=== PATIENT | female | born 1990 | race Caucasian/White ===

== ENCOUNTER 2020-05-17 07:29 | Inpatient (IN) | payer MEDICAID, SELFPAY ==
[2020-05-17] VITALS (122 sets, daily range): BP systolic 87–154; BP diastolic 46–131; PULSE 76–120; RESP 9–39; TEMP 36.6; O2SAT 88–100
--- NOTE | 2020-05-17 07:15 | RT.EKG_ITS ---
APPROVED REPORT Exam: Resting ECG Patient Location: E HR:105 bpm ECG Measurements Heart Rate 105 AXIS MT 155 P 43 QRSd 84 QRS 24 QT 371 T 33 QTc 489 Conclusion EKG 7: 50 Rate 105, sinus tachycardia, intervals normal, no significant ST elevation or depression, no evidence of STEMI
--- NOTE | 2020-05-17 07:43 | W.ED.GENAD ---
Discharge Plan Disposition Patient Disposition: [facility] INPATIENT Condition: Stable Discharge Details Clinical Impression: Accidental heroin overdose, Crack cocaine use, Elevated troponin, Chest wall pain Primary Care Provider: Denisha,Local ED Provider: Giselle Godfrey Home Meds and New Rx's Prescriptions: No Action acetaminophen [Tylenol] 325 MG tablet 650 mg PO Q4H PRN PRNQty: 30 RF: 0 dextroamphetamine-amphetamine [Adderall] 10 mg Tablet 10 mg PO DAILY RF: 0 trazodone 150 mg Tablet 150 mg PO QHS RF: 0 gabapentin 300 mg Tablet 600 mg PO QHS RF: 0 Medical Decision Making <Maco Mancuso, - Last Filed: 05/17/20 07:53> 30-year-old female with a past medical history of previous illicit drug use, presents today for evaluation of overdose. Patient has been clean for the last 2-1/2 years after being in snf for 2 years. She got out over 6 months ago. She has been clean since tonight. Tonight she overdosed accidentally, stating that she first smoked crack cocaine, followed by snorting of heroin. She was found by EMS in agonal respirations, with a notably diminished mental status. Intranasal and then subsequent intramuscular Narcan was given. After a prolonged episode and multiple sternal rubs the patient eventually began breathing normally again and eventually had complete return to her mental status and was brought into the ER for further evaluation. Currently the patient complains of pain in her chest on the left-hand side with a sternal rubs were performed per EMS, she also complains of pain on the tip of her tongue. No other complaints at this time. She denies any homicidal or suicidal ideations. She denies any other complaints. No other modifying factors. She is notably remorseful of her decision to use drugs again. Physical exam demonstrates notable reproducible tenderness over the left parasternal border. No evidence of bruising or dislocation otherwise. No evidence of tongue biting or laceration to the tongue. No other abnormalities on exam. With the patient's cocaine use in conjunction with a heroin use and her current chest pain we will get basic lab screening EKG and troponin. However I do feel her symptoms are most likely secondary to the notable and multiple sternal rubs that she got while trying to be aroused from her overdose. Patient will be signed out to my colleague Dr. Giselle Godfrey for follow-up on labs and imaging. We will procure the help of a manager disaster recovery to talk with the patient, she has agreed to this. EKG 7: 50 Rate 105, sinus tachycardia, intervals normal, no significant ST elevation or depression, no evidence of STEMI. <Giselle Godfrey, - Last Filed: 05/17/20 14:50> 0800 --please see Dr. Mancuso's note for initial presentation, exam and plan. Case endorsed to follow-up on labs and imaging and final disposition. Labs resulted and noted a significantly elevated white blood cell count at 25. Hemoglobin at baseline at 10. Troponin 0.10. Her EKG was unremarkable for any acute ST T wave ischemic changes. Patient continuing to complain of left-sided chest pain. Per Dr. Mancuso's evaluation, pain appeared musculoskeletal. Upon my assessment, patient has significant tenderness to palpation of her left anterior as well as substernal chest, likely consistent with multiple sternal rubs after overdose this morning. Suspect elevated yet indeterminate troponin likely due to this. As patient did smoke crack cocaine, will discuss with [facility] cardiology for consideration of vasospasm however this seems less likely. Patient with dizziness, nausea. Heart rate 100. Will give a liter IV fluids, Compazine, IV Tylenol and reassess. 0920 -- d/w [facility] cardiology -recommends observation for serial troponins and EKGs and echocardiogram. Agree that likely could be musculoskeletal but with cocaine use would recommend admission for observation. Does not see indication for tertiary care at this time unless condition changes. 1000 -- patient significantly drowsy after Compazine. Vitals remained within normal limits. Normal respiratory rate. 1200 -- repeat troponin uptrending, now 0.21. Repeat EKG unchanged. Pt still c/o chest pain. She was just screaming on the phone with someone. Will give a dose of ativan IV. Case discussed again with [facility] cardiology who still does not see indication for transfer for tertiary care. Does still recommend admission for observation, serial troponins and EKGs and echocardiogram. Case discussed with hospitalist who does not feel comfortable with patient staying here as echocardiogram not available this weekend. Patient requested [place] if possible. 1400 --discussed with [facility] cardiology --no indication for emergent transfer at this time. Would not be able to obtain echocardiogram until Tuesday either. 1440 --discussed with Dr. Rod who accepts patient for admission if third troponin not significantly uptrending. Troponin 0.26. Repeat EKG unchanged. Medical Records Medical records reviewed: Yes I reviewed the patient's medical records. Imaging Data Radiologic Study: Radiologist's impression: XR Chest, 1 View Exam date and time: 05/17/2020 9:26 AM Age: 30 years old Clinical indication: Chest pain; Type not specified TECHNIQUE: Imaging protocol: XR of the chest Views: 1 view. COMPARISON: No relevant prior studies available. FINDINGS: Lungs: Unremarkable. No consolidation. Pleural space: Unremarkable. No pleural effusion. No pneumothorax. Heart/Mediastinum: Unremarkable. No cardiomegaly. Bones/joints: Unremarkable. IMPRESSION: No acute findings. CT Angiography Chest With Contrast Exam date and time: 05/17/2020 12:22 PM Age: 30 years old Clinical indication: Patient HX: S/P heroin od, chest pain, ; additional info: Sub optimal iv, injection rate 3.5 TECHNIQUE: Imaging protocol: Computed tomographic angiography of the chest with intravenous contrast. 3D rendering (Not supervised by radiologist): MIP and/or 3D reconstructed images were created by the technologist. Contrast material: OMNIPAQUE 350; Contrast volume: 100 ml; Contrast route: IV; COMPARISON: CR XR PORTABLE CHEST AP 05/17/2020 9:18 AM FINDINGS: Pulmonary arteries: No evidence of pulmonary embolus to the segmental level. Aorta: No aneurysm of the aorta. No dissection of the aorta. Lungs: Minimal bibasilar atelectasis Pleural space: Unremarkable. No pneumothorax. No pleural effusion. Heart: Unremarkable. No cardiomegaly. No pericardial effusion. Lymph nodes: Preaortic node 21 x 8 mm Large node in the left axilla 2.4 by 1.3 cm. Node in the right axilla 2.4 x 0.9 cm Gallbladder and bile ducts: Cholecystectomy Bones/joints: Unremarkable. No acute fracture. Soft tissues: Unremarkable. IMPRESSION: 1. No evidence of pulmonary embolus to the segmental level. 2. No aneurysm of the aorta. 3. No dissection of the aorta. Lab Data Lab results reviewed: Yes I reviewed the patient's lab results. ECG Data Attestation: I personally reviewed and interpreted this ECG (s) as follows: Interpretation: #1 -- Rate of 105, sinus, no acute ST elevation or depression. WI 155. QRS 84. QTc 489. #2 -- Rate of 92, sinus, no acute ST elevation or depression. T wave inversion in aVL. WI 154. QRS 83. QTc 488. #3 -- Rate of 84, sinus, no acute ST elevation or depression. WI 159. QRS 85. QTc 470. HPI <Maco Mancuso DO - Last Filed: 05/17/20 07:53> General Date/Time Provider Initiated Documentation: 05/17/20 07:39. HPI Narrative: 30-year-old female with a past medical history of previous illicit drug use, presents today for evaluation of overdose. Patient has been clean for the last 2-1/2 years after being in snf for 2 years. She got out over 6 months ago. She has been clean since tonight. Tonight she overdosed accidentally, stating that she first smoked crack cocaine, followed by snorting of heroin. She was found by EMS in agonal respirations, with a notably diminished mental status. Intranasal and then subsequent intramuscular Narcan was given. After a prolonged episode and multiple sternal rubs the patient eventually began breathing normally again and eventually had complete return to her mental status and was brought into the ER for further evaluation. Currently the patient complains of pain in her chest on the left-hand side with a sternal rubs were performed per EMS, she also complains of pain on the tip of her tongue. No other complaints at this time. She denies any homicidal or suicidal ideations. She denies any other complaints. No other modifying factors. She is notably remorseful of her decision to use drugs again. Related Data Home Medications Medication Instructions Recorded Confirmed acetaminophen [Tylenol] 650 mg PO Q4H PRN PRN #30 tab 11/17/17 05/17/20 dextroamphetamine-amphetamine 10 mg PO DAILY 05/17/20 05/17/20 [Adderall] gabapentin 600 mg PO QHS 05/17/20 05/17/20 trazodone 150 mg PO QHS 05/17/20 05/17/20 Previous Rx's Medication Instructions Recorded acetaminophen [Tylenol] 650 mg PO Q4H PRN PRN #30 tab 11/17/17 Allergies Allergy/AdvReac Type Severity Reaction Status Date / Time sulfamethoxazole Allergy Intermediate Hives Verified 05/17/20 08:17 [From Bactrim] Review of Systems <Maco Mancuso DO - Last Filed: 05/17/20 07:53> All systems reviewed & are unremarkable except as noted in HPI and below PFSH <Maco Mancuso DO - Last Filed: 05/17/20 07:53> Medical History Anxiety disorder affecting , antepartum Asthma affecting , antepartum Cholecystitis Depression affecting , antepartum H/O abscess of skin and subcutaneous tissue H/O cocaine abuse H/O intravenous drug use in remission Herpes genitalia hx of fetus with hypoplastic L heart. Marijuana use Migraines Obesity (BMI 30-39.9) Tobacco use Surgical History Cholecystectomy 04/2011 Lap michael. Redd Incision & Drainage, Abscess or Hematoma (~11/2015) I+D multiple abcesses right foream which developed after skin popping cocaine Family History Mother Alcohol abuse Essential hypertension Personal history of malignant neoplasm Breast cancer and pre-cancerous polyp of colon Mental disorder Father No problems noted. Sister No problems noted. Sister No problems noted. Sister No problems noted. Brother No problems noted. Social History Smoking/Tobacco Use Status: Current every day Tobacco Type: cigarettes Alcohol Intake: never Drug use: Daily Substance use type: crack/cocaine and heroin Do you feel safe at home: Yes Do you feel safe in your relationship?: Yes History History Para 1 Hx # Term Pregnancies Multiple births Hx # Pregnancies Ectopic pregnancies AB induced Hx Number of Living Children AB spontaneous Exam <Maco Mancuso DO - Last Filed: 05/17/20 07:53> Narrative Exam Narrative: 1.Const: Well-nourished, Well-developed, appearing stated age 2.Eyes: PERRL, no conjunctival injection, and symmetrical lids. 3.ENT: Atraumatic external nose and ears. Moist MM. Neck: Symmetric, trachea midline, No thyromegaly. No evidence of tongue biting or lesion on the tongue 4.CVS: +S1/S2, No murmurs or gallops. Peripheral pulses 2+ and equal in all extremities. Brisk capillary refill in all extremities. Notable reproducible tenderness in the left parasternal border, no evidence of bruising or dislocation. 5.RESP: Unlabored respiratory effort. Clear to auscultation bilaterally. No wheezes rales or rhonchi 6.GI: Soft, Nontender/Nondistended, No hepatosplenomegaly. No guarding or rebound. 7.MSK: Normocephalic/Atraumatic, Extremities w/o deformity or ttp No cyanosis or clubbing, Normal movement of all extremities 8.Skin: Warm, Dry. No rashes or lesions. 9.Neuro: environment artist II-XII grossly intact. Sensation grossly intact, no focal neurologic deficits. 10.Psych: (AAO) x3. Appropriate mood and affect Sign Out <Maco Mancuso DO - Last Filed: 05/17/20 07:53> Sign Out Data: Sign Out Comment: Overdose, used both cocaine and then heroin. Pending reevaluation and follow-up on labs and imaging. Last updated by Maco Mancuso DO at 05/17/20 08:24
[2020-05-17] MEDS: Lidocaine 5% Patch 1 PATCH TP (07:56)
[2020-05-17] MEDS: Ketorolac 30 MG/ML VIAL IM (07:57)
[2020-05-17 08:23] LABS: Abs Immature Grans 0.16 10^3/uL (0.0-0.06); Basophils % 0.4; Eosinophils % 0.7; HCT 34.2 % (36.0-46.0); HGB 10.6 g/dL (11.2-15.7); Immature Grans % 0.6; Lymphocytes % 7.3; MCH 24.5 pg (27.0-33.0); MCV 79.2 fL (80-95); MPV 9.4 fL (8.0-11.0); Monocytes % 5.3; Neutrophils % 85.7; Nucleated RBC 0 %; RBC 4.32 10^6/uL (3.93-5.22); RDW 14.4 % (11.7-14.6); RDW-SD 40.7 fL
[2020-05-17 08:27] LABS: Absolute Eosinophil Count 0.18 10^3/uL (0.0-0.7); Absolute Lymphocyte Count 1.86 10^3/uL (1.2-3.4); Absolute Monocyte Count 1.35 10^3/uL (0.1-0.8); Absolute Neutrophil Count 21.81 10^3/uL (1.2-6.7); WBC 25.45 10^3/uL (4.4-10.8)
[2020-05-17 08:42] LABS: ALT 18 U/L (14-59); AST 18 U/L (15-37); Albumin 3.4 g/dL (3.4-5.0); Alkaline Phosphatase 88 U/L (46-116); Anion Gap 11.1 mmol/L (3-11); BUN 10 mg/dL (7-18); Bilirubin, Total 0.3 mg/dL (0.2-1.0); CO2 23.9 mmol/L (21.0-32.0); CREATININE 0.86 mg/dL (0.55-1.02); Calcium 8.5 mg/dL (8.5-10.1); Chloride 102 mmol/L (98-107); Glucose 117 mg/dL (74-106); Potassium 3.6 mmol/L (3.5-5.1); Sodium 137 mmol/L (136-145); Total Protein 7.7 g/dL (6.4-8.2)
[2020-05-17 08:45] LABS: HCG Qual (Serum) Negative
[2020-05-17 08:49] LABS: Diff Comment Agrees w/ Instrument; Platelet Count 419 10^3/uL (130-400)
[2020-05-17 08:50] LABS: Hypochromasia 1+; Polychromasia Present
--- NOTE | 2020-05-17 09:15 | DI.RAD_ITS ---
EXAM: XR PORTABLE CHEST AP CLINICAL HISTORY: chest pain, elev trop, r/o acute disease TECHNIQUE: 2D digital imaging was performed. COMPARISON: No exams were available for comparison FINDINGS: MEDIASTINUM: Normal. HEART: Normal. PULMONARY VASCULATURE: Normal. LUNGS: Clear. PLEURAL SPACE: No pleural effusion or pneumothorax. BONE:Within normal limits for the patient's age. OTHER FINDINGS:Normal. IMPRESSION: No acute pulmonary findings. DATA REPOSITORY: RADIATION DOSE DELIVERED:
--- NOTE | 2020-05-17 09:30 | RT.EKG_ITS ---
APPROVED REPORT Exam: Resting ECG Patient Location: E HR:92 bpm ECG Measurements Heart Rate 92 AXIS DE 154 P 57 QRSd 83 QRS 36 QT 394 T 74 QTc 488 Conclusion Sinus rhythm...normal P axis, V-rate 60- 99. T wave inversion in aVL. No STEMI. I have reviewed and interpreted ECG and agree with software generated interpretation.
[2020-05-17] MEDS: ACETAMINOPHEN 1,000 MG/100 ML BTL 400 MG IVPB (09:36)
[2020-05-17] MEDS: Normal Saline 1,000 ML 1000 ML IV ×2 (09:37→10:16)
[2020-05-17] MEDS: Prochlorperazine 10 MG/2 ML VIAL IVP (09:37)
--- NOTE | 2020-05-17 09:39 | DI.VRAD_ITS ---
PROCEDURE INFORMATION: Exam: XR Chest, 1 View Exam date and time: 05/17/2020 9:26 AM Age: 30 years old Clinical indication: Chest pain; Type not specified TECHNIQUE: Imaging protocol: XR of the chest Views: 1 view. COMPARISON: No relevant prior studies available. FINDINGS: Lungs: Unremarkable. No consolidation. Pleural space: Unremarkable. No pleural effusion. No pneumothorax. Heart/Mediastinum: Unremarkable. No cardiomegaly. Bones/joints: Unremarkable. IMPRESSION: No acute findings. Dictated and Authenticated by: Rudolph Garner MD. Ordering:DARI Desai MD
[2020-05-17 09:45] LABS: Magnesium 2.2 mg/dL (1.8-2.4)
[2020-05-17 11:52] LABS: Troponin I 0.21 ng/mL (<0.06)
[2020-05-17] MEDS: LORazepam 2 MG/ML VIAL 0.5 MG IVP (12:14)
--- NOTE | 2020-05-17 12:15 | DI.CT_ITS ---
EXAM: CT THORAX CTA CLINICAL HISTORY: chest pain, elevated wbc, s/p heroin OD. TECHNIQUE: Imaging Protocol: Axial CT angiography was performed with multi-slice acquisition and mu lti-planar and/or 3D reconstructions. CONTRAST MATERIAL: Intravenous: Omnipaque 350 Contrast volume:100 mL COMPARISON: Chest x-ray dated 05/17/2020. FINDINGS: Pulmonary Arteries: No evidence of filling defect to suggest pulmonary emboli. Tracheobronchial tree: Patent where visualized. Mediastinum and Micaela: No dominant adenopathy or fluid collection. Pulmonary parenchyma: Small nonspecific infiltrate in the left lower lobe. The atelectasis in the ghassan ng bases. No architectural distortion. Pleura: No effusion or pneumothorax. Heart: The heart is not dilated. No coronary artery calcifications are seen. No pericardial effusion. Aorta: Thoracic aorta non-dilated. No evidence of dissection. Upper abdomen: Status post cholecystectomy. IMPRESSION: No evidence of pulmonary embolism, thoracic aortic dissection or aneurysm. RADIATION DOSE DELIVERED: 1,263.02mGy.cm Total DLP 1,263.02mGy.cm Total DLP DATA REPOSITORY: All CT scans at this facility are submitted to the National Radiology Data Registry (NRDR) Dose Index Registry (DIR) with the [employer] (ACR). RADIATION OPTIMIZATION: All CT scans at this facility use at least one of these dose optimization te chniques: automated exposure control; mA and/or kV adjustment per patient size (includes targeted exa ms where dose is matched to clinical indication); or iterative reconstruction.
[2020-05-17] MEDS: Omnipaque 350 MG/ML 100 ML BTL IJ (12:40)
[2020-05-17] MEDS: Normal Saline Flush 10 ML SYR IVP (12:42)
[2020-05-17] MEDS: Normal Saline - Diluent 50 ML VIAL IV (12:42)
[2020-05-17 12:46] LABS: *AMPHETAMINES SCREEN URINE Negative (Negative); *BARBITURATES SCREEN URINE Negative (Negative); *BENZODIAZEPINES SCREEN URINE Negative (Negative); Cannabinoids THC POSITIVE (Negative); Cocaine Screen,Urine POSITIVE (Negative); METHADONE URINE SCREEN Negative (Negative); OPIATES URINE SCREEN Negative (Negative)
[2020-05-17 12:47] LABS: Tricyclic Antidepressants Negative (Negative)
--- NOTE | 2020-05-17 13:25 | DI.VRAD_ITS ---
PROCEDURE INFORMATION: Exam: CT Angiography Chest With Contrast Exam date and time: 05/17/2020 12:22 PM Age: 30 years old Clinical indication: Patient HX: S/P heroin od, chest pain, ; additional info: Sub optimal iv, injection rate 3.5 TECHNIQUE: Imaging protocol: Computed tomographic angiography of the chest with intravenous contrast. 3D rendering (Not supervised by radiologist): MIP and/or 3D reconstructed images were created by the technologist. Contrast material: OMNIPAQUE 350; Contrast volume: 100 ml; Contrast route: IV; COMPARISON: CR XR PORTABLE CHEST AP 05/17/2020 9:18 AM FINDINGS: Pulmonary arteries: No evidence of pulmonary embolus to the segmental level. Aorta: No aneurysm of the aorta. No dissection of the aorta. Lungs: Minimal bibasilar atelectasis Pleural space: Unremarkable. No pneumothorax. No pleural effusion. Heart: Unremarkable. No cardiomegaly. No pericardial effusion. Lymph nodes: Preaortic node 21 x 8 mm Large node in the left axilla 2.4 by 1.3 cm. Node in the right axilla 2.4 x 0.9 cm Gallbladder and bile ducts: Cholecystectomy Bones/joints: Unremarkable. No acute fracture. Soft tissues: Unremarkable. IMPRESSION: 1. No evidence of pulmonary embolus to the segmental level. 2. No aneurysm of the aorta. 3. No dissection of the aorta. Dictated and Authenticated by: Rudolph Garner MD. Ordering:DARI Desai MD
--- NOTE | 2020-05-17 13:30 | RT.EKG_ITS ---
APPROVED REPORT Exam: Resting ECG Patient Location: E HR:84 bpm ECG Measurements Heart Rate 84 AXIS MD 159 P 49 QRSd 85 QRS 35 QT 398 T 64 QTc 470 Conclusion Sinus rhythm...normal P axis, V-rate 60- 99. I have reviewed and interpreted ECG and agree with software generated interpretation.
[2020-05-17 14:29] LABS: Lactate 0.3 mmol/L (0.9-1.7)
[2020-05-17 14:43] LABS: Troponin I 0.26 ng/mL (<0.06)
[2020-05-17 16:17] LABS: C-Reactive Protein 6.22 mg/dL (0.0-0.3); Creatine Kinase 72 U/L (26-192); NT-proBNP 131 pg/mL (<300); TSH 4.19 uIU/mL (0.36-3.74)
[2020-05-17] MEDS: Acetaminophen 325 MG TAB PO (16:29)
[2020-05-17] MEDS: Normal Saline 1,000 ML 175 ML IV ×2 (16:29→21:52)
[2020-05-17] MEDS: Nicotine 14 MG/24 HR PATCH TD (16:30)
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
[2020-05-17 16:45] LABS: Procalcitonin 0.1 ng/mL
[2020-05-17 17:20] LABS: Bilirubin Negative (Negative); Blood Negative (Negative); Clarity Clear (Clear); Glucose Negative (Negative); Ketones Negative (Negative); Leukocyte Esterase Negative (Negative); Nitrite Negative (Negative); Specific Gravity >= 1.030 (1.005-1.025); Urobilinogen 0.2 EU/dL (Up TO 0.2)
[2020-05-17] MEDS: Aspirin E.C. 325 MG TABEC PO (17:46)
[2020-05-17 18:09] LABS: Bacteria Few HPF (Negative); Casts Negative LPF (Negative); Crystals Negative HPF (Negative); Epithelial Cells Many HPF (Negative); Mucus Heavy (Negative); Other Cells Negative (Negative); RBC Negative HPF (0-2)
[2020-05-17 18:10] LABS: C & S Indicated? No/Sq. Contamination
[2020-05-17] MEDS: cloNIDine 0.1 MG TAB PO (19:01)
[2020-05-17] MEDS: Gabapentin 600 MG TAB PO (21:14)
[2020-05-17] MEDS: traZODone 50 MG TAB 150 MG PO (21:14)
[2020-05-17 22:41] LABS: Troponin I 0.13 ng/mL (<0.06)
[2020-05-18] VITALS (70 sets, daily range): BP systolic 84–145; BP diastolic 41–72; PULSE 75–103; RESP 13–22; TEMP 36.5–37.4; O2SAT 88–98
[2020-05-18] MEDS: Normal Saline 1,000 ML 175 ML IV ×2 (03:35→09:29)
[2020-05-18] MEDS: Ketorolac 30 MG/ML VIAL IVP ×2 (06:31→19:02)
[2020-05-18 07:20] LABS: Abs Immature Grans 0.02 10^3/uL (0.0-0.06); Absolute Basophil Count 0.05 10^3/uL (0.0-0.2); Absolute Eosinophil Count 0.45 10^3/uL (0.0-0.7); Absolute Lymphocyte Count 2.55 10^3/uL (1.2-3.4); Absolute Monocyte Count 0.43 10^3/uL (0.1-0.8); Absolute Neutrophil Count 3.11 10^3/uL (1.2-6.7); Basophils % 0.8; Eosinophils % 6.8; HCT 27.3 % (36.0-46.0); HGB 8.4 g/dL (11.2-15.7); Immature Grans % 0.3; Lymphocytes % 38.6; MCH 25.1 pg (27.0-33.0); MCHC 30.8 % (32.0-36.0); MCV 81.5 fL (80-95); MPV 9.7 fL (8.0-11.0); Monocytes % 6.5; Nucleated RBC 0 %; Platelet Count 287 10^3/uL (130-400); RBC 3.35 10^6/uL (3.93-5.22); RDW 14.8 % (11.7-14.6); RDW-SD 43.6 fL; WBC 6.61 10^3/uL (4.4-10.8)
[2020-05-18 07:36] LABS: Hypochromasia 1+; Iron 22 ug/dL (50-170); Polychromasia Present; Total Iron Binding Capacity 247 ug/dL (250-450); Transferrin Sat 9 % (15-50)
[2020-05-18 07:46] LABS: FREE T4 1.22 ng/dL (0.76-1.46)
[2020-05-18 07:51] LABS: ALT 18 U/L (14-59); AST 17 U/L (15-37); Albumin 2.7 g/dL (3.4-5.0); Alkaline Phosphatase 64 U/L (46-116); Anion Gap 6.7 mmol/L (3-11); BUN 8 mg/dL (7-18); Bilirubin, Total 0.2 mg/dL (0.2-1.0); CO2 25.3 mmol/L (21.0-32.0); CREATININE 0.53 mg/dL (0.55-1.02); Calcium 7.6 mg/dL (8.5-10.1); Chloride 108 mmol/L (98-107); Ferritin 44 ng/mL (8-252); Glucose 85 mg/dL (74-106); Magnesium 1.9 mg/dL (1.8-2.4); Sodium 140 mmol/L (136-145); Total Protein 6.1 g/dL (6.4-8.2); Troponin I 0.06 ng/mL (<0.06)
[2020-05-18 08:03] LABS: Bilirubin, Direct 0.05 mg/dL (0.00-0.20); C-Reactive Protein 7.12 mg/dL (0.0-0.3); Creatine Kinase 56 U/L (26-192)
[2020-05-18] MEDS: cloNIDine 0.1 MG TAB PO ×2 (08:06→19:02)
[2020-05-18] MEDS: Aspirin E.C. 81 MG TABEC PO (08:06)
[2020-05-18] MEDS: Pantoprazole 40 MG TABCR PO (08:06)
--- NOTE | 2020-05-18 08:25 | W.PM.PROGNOT ---
Date of Service Date of service: 05/18/20 Time of Service: 12:08 Assessment and Plan Assessment and plan (1) Polysubstance overdose: Status: Acute Assessment and plan: Unintentional. Mental status at baseline at this time, but I suspect cardiac strain due to cocaine and/or episode of hypoxia. For echo tomorrow. We are consulting a coach operator. (2) Elevated troponin: Status: Acute Assessment and plan: Most likely due to transient hypoxia in setting of overdose vs strain from vasospasm from cocaine. Troponins have turned around. Continue aspirin, though I doubt atherosclerotic mechanism to her troponinemia. Await echo. (3) Prolonged QT interval: Status: Acute Assessment and plan: Decrease dose of trazodone. D/c antiemetics/hydroxyzine. Continue cardiac monitoring. (4) Leucocytosis: Status: Resolved Assessment and plan: Likely reactive to yesterday's episode. Blood cultures are still pending. Afebrile. No evidence of respiratory or urinary infection. Continue to hold off of abx at this time. (5) Chest wall pain: Status: Acute Assessment and plan: Likely due to repetitive sternal rubs, but there is a component of a muscle spasm. Trial heat/lidoderm patch/soma. Continue prn tylenol, toradol. Consult PT. (6) Cigarette nicotine dependence, uncomplicated: Status: Chronic Assessment and plan: Advised to quit. Provide nicotine patch (7) Muscle spasm: Status: Acute Assessment and plan: As above (8) Iron deficiency anemia: Status: Acute Assessment and plan: Start PO iron with colace and vitamin C. (9) DVT prophylaxis: Status: Acute Assessment and plan: TEDS/SCDs (10) Discharge planning issues: Status: Acute Assessment and plan: Full code Subjective Subjective Interval history since last seen: Ms Kim states she is not feeling very well today. She reports a headache, SOB to nursing, leg pains, chest pain when she inhales (but also shoulder pain and neck pain, all worse with inspiration). No nausea/vomiting/abdominal pain. She has had muscle spasms in the past and says that both flexeril and soma work. SBP 88-101 (?appropriate cuff size). Wheezing this morning - better now. Exam Narrative Exam Narrative: General: Pleasant obese female, A&Ox3, does appear uncomfortable HEENT: EOMI, MMM. Does have a palpable muscle spasm (?trapezius) on the L upper back. Cardiovascular: RRR, no m/r/g Lungs: CTAB Gastrointestinal: soft, nontender, nondistended, +BS Genitourinary: deferred Extremities: no e/c/c BLEs, 1+ pedal pulses B Objective Last Vital Signs Temp 36.5 C 05/18/20 05:21 Pulse 83 05/18/20 06:50 Resp 20 05/18/20 07:00 BP 110/67 05/18/20 06:50 Pulse Ox 92 05/18/20 02:10 Laboratory Results - last 24 hr 05/17/20 05/17/20 05/17/20 08:15 08:15 08:15 WBC 25.45 H* RBC 4.32 Hgb 10.6 L Hct 34.2 L MCV 79.2 L MCH 24.5 L MCHC 31.0 L RDW 14.4 Plt Count 419 H MPV 9.4 Immature Gran % 0.6 Neutrophils % 85.7 Lymphocytes % 7.3 Monocytes % 5.3 Eosinophils % 0.7 Basophils % 0.4 Nucleated RBC % 0 Absolute Neutrophils 21.81 H Absolute Lymphocytes 1.86 Absolute Monocytes 1.35 H Absolute Eosinophils 0.18 Absolute Basophils 0.10 RBC Morphology See below Polychromasia Present Hypochromasia 1+ VBG Lactate Sodium 137 Potassium 3.6 Chloride 102 Carbon Dioxide 23.9 Anion Gap 11.1 H BUN 10 Creatinine 0.86 Estimated GFR/1.73 m2 >= 60.00 Glucose 117 H Calcium 8.5 Magnesium Iron TIBC Transferrin % Sat Ferritin Total Bilirubin 0.3 Conjugated Bilirubin AST 18 ALT 18 Alkaline Phosphatase 88 Creatine Kinase 72 Troponin I 0.10 H* C-Reactive Protein 6.22 H NT-Pro-B Natriuret Pep 131 Total Protein 7.7 Albumin 3.4 Procalcitonin TSH 4.19 H Free T4 Serum HCG, Qual Negative Urine Color Urine Clarity Urine pH Ur Specific [place] Urine Protein Urine Ketones Urine Blood Urine Nitrite Urine Bilirubin Urine Urobilinogen Ur Leukocyte Esterase Urine RBC Urine WBC Ur Epithelial Cells Urine Crystals Urine Bacteria Urine Casts Urine Mucus Urine Other Ur Culture Indicated? Urine Glucose Urine Opiates Screen Urine Methadone Screen Ur Barbiturates Screen Ur Tricyclics Screen Ur Amphetamines Screen U Benzodiazepines Scrn Urine Cocaine Screen Ur THC Screen 05/17/20 05/17/20 05/17/20 08:15 08:15 11:15 WBC RBC Hgb Hct MCV MCH MCHC RDW Plt Count MPV Immature Gran % Neutrophils % Lymphocytes % Monocytes % Eosinophils % Basophils % Nucleated RBC % Absolute Neutrophils Absolute Lymphocytes Absolute Monocytes Absolute Eosinophils Absolute Basophils RBC Morphology Polychromasia Hypochromasia VBG Lactate Sodium Potassium Chloride Carbon Dioxide Anion Gap BUN Creatinine Estimated GFR/1.73 m2 Glucose Calcium Magnesium 2.2 Iron TIBC Transferrin % Sat Ferritin Total Bilirubin Conjugated Bilirubin AST ALT Alkaline Phosphatase Creatine Kinase Troponin I 0.21 H* C-Reactive Protein NT-Pro-B Natriuret Pep Total Protein Albumin Procalcitonin 0.1 TSH Free T4 Serum HCG, Qual Urine Color Urine Clarity Urine pH Ur Specific [place] Urine Protein Urine Ketones Urine Blood Urine Nitrite Urine Bilirubin Urine Urobilinogen Ur Leukocyte Esterase Urine RBC Urine WBC Ur Epithelial Cells Urine Crystals Urine Bacteria Urine Casts Urine Mucus Urine Other Ur Culture Indicated? Urine Glucose Urine Opiates Screen Urine Methadone Screen Ur Barbiturates Screen Ur Tricyclics Screen Ur Amphetamines Screen U Benzodiazepines Scrn Urine Cocaine Screen Ur THC Screen 05/17/20 05/17/20 05/17/20 12:25 12:25 14:19 WBC RBC Hgb Hct MCV MCH MCHC RDW Plt Count MPV Immature Gran % Neutrophils % Lymphocytes % Monocytes % Eosinophils % Basophils % Nucleated RBC % Absolute Neutrophils Absolute Lymphocytes Absolute Monocytes Absolute Eosinophils Absolute Basophils RBC Morphology Polychromasia Hypochromasia VBG Lactate Sodium Potassium Chloride Carbon Dioxide Anion Gap BUN Creatinine Estimated GFR/1.73 m2 Glucose Calcium Magnesium Iron TIBC Transferrin % Sat Ferritin Total Bilirubin Conjugated Bilirubin AST ALT Alkaline Phosphatase Creatine Kinase Troponin I 0.26 H* C-Reactive Protein NT-Pro-B Natriuret Pep Total Protein Albumin Procalcitonin TSH Free T4 Serum HCG, Qual Urine Color Yellow Urine Clarity Clear Urine pH 6.0 Ur Specific [place] >= 1.030 H Urine Protein 30 H Urine Ketones Negative Urine Blood Negative Urine Nitrite Negative Urine Bilirubin Negative Urine Urobilinogen 0.2 Ur Leukocyte Esterase Negative Urine RBC Negative Urine WBC 5-10 Ur Epithelial Cells Many Urine Crystals Negative Urine Bacteria Few Urine Casts Negative Urine Mucus Heavy Urine Other Negative Ur Culture Indicated? No/sq. contamination Urine Glucose Negative Urine Opiates Screen Negative Urine Methadone Screen Negative Ur Barbiturates Screen Negative Ur Tricyclics Screen Negative Ur Amphetamines Screen Negative U Benzodiazepines Scrn Negative Urine Cocaine Screen Positive A Ur THC Screen Positive A 05/17/20 05/17/20 05/17/20 14:19 14:19 18:05 WBC RBC Hgb Hct MCV MCH MCHC RDW Plt Count MPV Immature Gran % Neutrophils % Lymphocytes % Monocytes % Eosinophils % Basophils % Nucleated RBC % Absolute Neutrophils Absolute Lymphocytes Absolute Monocytes Absolute Eosinophils Absolute Basophils RBC Morphology Polychromasia Hypochromasia VBG Lactate Cancelled 0.3 L Sodium Potassium Chloride Carbon Dioxide Anion Gap BUN Creatinine Estimated GFR/1.73 m2 Glucose Calcium Magnesium Iron TIBC Transferrin % Sat Ferritin Total Bilirubin Conjugated Bilirubin AST ALT Alkaline Phosphatase Creatine Kinase Troponin I 0.20 H* C-Reactive Protein NT-Pro-B Natriuret Pep Total Protein Albumin Procalcitonin TSH Free T4 Serum HCG, Qual Urine Color Urine Clarity Urine pH Ur Specific [place] Urine Protein Urine Ketones Urine Blood Urine Nitrite Urine Bilirubin Urine Urobilinogen Ur Leukocyte Esterase Urine RBC Urine WBC Ur Epithelial Cells Urine Crystals Urine Bacteria Urine Casts Urine Mucus Urine Other Ur Culture Indicated? Urine Glucose Urine Opiates Screen Urine Methadone Screen Ur Barbiturates Screen Ur Tricyclics Screen Ur Amphetamines Screen U Benzodiazepines Scrn Urine Cocaine Screen Ur THC Screen 05/17/20 05/18/20 05/18/20 22:03 06:40 06:40 WBC 6.61 D RBC 3.35 L Hgb 8.4 L D Hct 27.3 L D MCV 81.5 MCH 25.1 L MCHC 30.8 L RDW 14.8 H Plt Count 287 D MPV 9.7 Immature Gran % 0.3 Neutrophils % 47.0 Lymphocytes % 38.6 Monocytes % 6.5 Eosinophils % 6.8 Basophils % 0.8 Nucleated RBC % 0 Absolute Neutrophils 3.11 Absolute Lymphocytes 2.55 Absolute Monocytes 0.43 Absolute Eosinophils 0.45 Absolute Basophils 0.05 RBC Morphology See below Polychromasia Present Hypochromasia 1+ VBG Lactate Sodium 140 Potassium 4.0 Chloride 108 H Carbon Dioxide 25.3 Anion Gap 6.7 BUN 8 Creatinine 0.53 L D Estimated GFR/1.73 m2 >= 60.00 Glucose 85 Calcium 7.6 L Magnesium 1.9 Iron TIBC Transferrin % Sat Ferritin 44 Total Bilirubin 0.2 Conjugated Bilirubin 0.05 AST 17 ALT 18 Alkaline Phosphatase 64 Creatine Kinase 56 Troponin I 0.13 H* 0.06 C-Reactive Protein 7.12 H NT-Pro-B Natriuret Pep Total Protein 6.1 L Albumin 2.7 L Procalcitonin TSH Free T4 Serum HCG, Qual Urine Color Urine Clarity Urine pH Ur Specific [place] Urine Protein Urine Ketones Urine Blood Urine Nitrite Urine Bilirubin Urine Urobilinogen Ur Leukocyte Esterase Urine RBC Urine WBC Ur Epithelial Cells Urine Crystals Urine Bacteria Urine Casts Urine Mucus Urine Other Ur Culture Indicated? Urine Glucose Urine Opiates Screen Urine Methadone Screen Ur Barbiturates Screen Ur Tricyclics Screen Ur Amphetamines Screen U Benzodiazepines Scrn Urine Cocaine Screen Ur THC Screen 05/18/20 05/18/20 06:40 06:40 WBC RBC Hgb Hct MCV MCH MCHC RDW Plt Count MPV Immature Gran % Neutrophils % Lymphocytes % Monocytes % Eosinophils % Basophils % Nucleated RBC % Absolute Neutrophils Absolute Lymphocytes Absolute Monocytes Absolute Eosinophils Absolute Basophils RBC Morphology Polychromasia Hypochromasia VBG Lactate Sodium Potassium Chloride Carbon Dioxide Anion Gap BUN Creatinine Estimated GFR/1.73 m2 Glucose Calcium Magnesium Iron 22 L TIBC 247 L Transferrin % Sat 9 L Ferritin Total Bilirubin Conjugated Bilirubin AST ALT Alkaline Phosphatase Creatine Kinase Troponin I C-Reactive Protein NT-Pro-B Natriuret Pep Total Protein Albumin Procalcitonin TSH Free T4 1.22 Serum HCG, Qual Urine Color Urine Clarity Urine pH Ur Specific [place] Urine Protein Urine Ketones Urine Blood Urine Nitrite Urine Bilirubin Urine Urobilinogen Ur Leukocyte Esterase Urine RBC Urine WBC Ur Epithelial Cells Urine Crystals Urine Bacteria Urine Casts Urine Mucus Urine Other Ur Culture Indicated? Urine Glucose Urine Opiates Screen Urine Methadone Screen Ur Barbiturates Screen Ur Tricyclics Screen Ur Amphetamines Screen U Benzodiazepines Scrn Urine Cocaine Screen Ur THC Screen EKG: NSR, HR 93, prolonged QTc (510 ms), no acute ischemia.
--- NOTE | 2020-05-18 08:30 | RT.EKG_ITS ---
APPROVED REPORT Exam: Resting ECG Patient Location: I HR:93 bpm ECG Measurements Heart Rate 93 AXIS AL 158 P 57 QRSd 83 QRS 50 QT 409 T 84 QTc 510 Conclusion Sinus rhythm...normal P axis, V-rate 60- 99 Prolonged QT interval...QTc >495mS
--- NOTE | 2020-05-18 09:32 | DI.RAD_ITS ---
EXAM: XR PORTABLE CHEST AP CLINICAL HISTORY: new wheezing TECHNIQUE: 2D digital imaging was performed. COMPARISON: No exams were available for comparison FINDINGS: LUNGS: Clear. No pleural abnormality seen. HEART: Normal. MEDIASTINUM: Normal. OTHER FINDINGS: None. IMPRESSION: No acute pulmonary findings. DATA REPOSITORY: RADIATION DOSE DELIVERED:
[2020-05-18 09:46] LABS: COVID-19 RT-PCR UVMMC Result Negative (Negative)
[2020-05-18] MEDS: Nicotine 14 MG/24 HR PATCH TD (09:53)
--- NOTE | 2020-05-18 10:03 | DI.VRAD_ITS ---
PROCEDURE INFORMATION: Exam: XR Chest, 1 View Exam date and time: 05/18/2020 9:23 AM Age: 30 years old Clinical indication: Other: New weezing TECHNIQUE: Imaging protocol: XR of the chest Views: 1 view. COMPARISON: CR XR PORTABLE CHEST AP 05/17/2020 9:18 AM FINDINGS: Lungs: Unremarkable. No consolidation. Pleural space: Unremarkable. No pleural effusion. No pneumothorax. Heart/Mediastinum: The cardiomediastinal silhouette is fairly stable in appearance. Bones/joints: Unremarkable. IMPRESSION: No evidence for acute pulmonary disease. Dictated and Authenticated by: Tunde Mcdonald MD. Ordering:HARRIET Bills MD
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
[2020-05-18] MEDS: Ferrous Sulfate 325 MG TAB PO ×2 (11:02→20:14)
[2020-05-18] MEDS: Lidocaine 5% Patch 1 PATCH TP (12:22)
[2020-05-18] MEDS: Normal Saline Flush 10 ML SYR IVP (19:02)
[2020-05-18] MEDS: Acetaminophen 325 MG TAB PO (19:02)
[2020-05-18] MEDS: Ascorbic Acid 500 MG TAB 250 MG PO (20:14)
[2020-05-18] MEDS: traZODone 50 MG TAB 100 MG PO (21:39)
[2020-05-18] MEDS: Gabapentin 600 MG TAB PO (21:39)
[2020-05-18] MEDS: LIDOCAINE Patch Removal 1 EACH TP (22:43)
[2020-05-18] MEDS: Normal Saline 1,000 ML 125 ML IV (23:30)
[2020-05-19] VITALS (11 sets, daily range): BP systolic 103–135; BP diastolic 67–97; PULSE 67–109; RESP 19–33; TEMP 36.5–37.4; O2SAT 99
[2020-05-19] MEDS: Ketorolac 30 MG/ML VIAL IVP ×2 (02:12→08:32)
--- NOTE | 2020-05-19 08:00 | DI.US_ITS ---
APPROVED REPORT EXAM: Comprehensive 2D, Doppler, and color-flow Echocardiogram Patient Location: In-Patient Room/Bed: BIC[employer] Operator: Shena Heath RDCS (AE) Indications: Elevated Troponin Other Information Study Quality: Adequate Conclusion Left Ventricle : The left ventricle is normal size. The left ventricular systolic function is normal. The left ventricular ejection fraction is within the normal range. There is normal left ventricular wall thickness. There is normal LV segmental wall motion. The left ventricular diastolic function is normal. LVEF is 55-58%. Right Ventricle : The right ventricle is normal size. The right ventricular systolic function is norm al. Atria : The left atrium size is normal. The right atrium size is normal. Valves: There are no hemodynamically significant valvular lesions. Great Vessels : The aortic root is normal in size. The ascending aorta is normal in size. Aortic arch is normal in caliber. IVC is normal in size and collapses >50% with inspiration. Please see remainder of study for further details. Wall motion Left Ventricle The left ventricle is normal size. The left ventricular systolic function is normal. The left ventric ular ejection fraction is within the normal range. There is normal left ventricular wall thickness. T here is normal LV segmental wall motion. The left ventricular diastolic function is normal. There is no ventricular septal defect visualized. LVEF is 55-58%. Right Ventricle The right ventricle is normal size. The right ventricular systolic function is normal. Atria The left atrium size is normal. The right atrium size is normal. The interatrial septum is intact wit h no evidence for an atrial septal defect. Aortic Valve The aortic valve is normal in structure. Aortic valve is trileaflet. There is no aortic valvular sten osis. No aortic regurgitation is present. Mitral Valve The mitral valve is normal in structure. No evidence of mitral valve stenosis. Trace to mild mitral r egurgitation. Tricuspid Valve The tricuspid valve is normal in structure. There is no tricuspid valve stenosis. Trace to mild tricu spid regurgitation. Pulmonic Valve The pulmonary valve is normal in structure. There is no pulmonic valvular stenosis. There is no pulmo leslie valvular regurgitation. Great Vessels The aortic root is normal in size. The ascending aorta is normal in size. Aortic arch is normal in ca liber. IVC is normal in size and collapses >50% with inspiration. Pericardium There is no pericardial effusion. 2D Dimensions IVSD d PLAX 0.90 cm F: 0.6-1.0 LV Vol A2C d MOD 140.3 mL LVPW d PLAX 0.91 cm F: 0.6 - 1.0 LV Vol A4C d MOD 127.9 mL LVID d PLAX 4.99 cm F: 3.8 - 5.2 LA vol/ BSA A2C s A-L 28.2 mL/m2 LVDs 3.60 cm F: 2.2 - 3.5 LA vol/ BSA A4C s A-L 20.3 mL/m2 Ao Root d 2.62 cm F: 2.7 - 3.3 LA Vol/ BSA Biplane s A-L 24.3 mL/m2 RA Area A4C 18.12 cm2 LA Area A4C s MOD 17.73 cm2 RA Vol/ BSA A4C s A-L 22.0 mL/m2 LA Area A2C s MOD 20.57 cm2 Ao Asc Diam d 2.68 cm F: 2.3 - 3.1 LV EF A4C MOD 55.6 % LV EF Teichholz 53.3 % LV EF A2C MOD 58.3 % LVEF (Monk's) 55.79 % F: 54 - 74 LV EF Biplane MOD 55.8 % LV Volume 96.86 mL F: 46 - 106 SV 75.85 mL LV Volume Index 41.21 mL/m2 F: 29 - 61 SV Index 32.24 mL/m2 LV Vol Biplane MOD 135.9 mL FS 27.55 % M-Mode TAPSE 2.53 cm (M/F) >1.7 LV Diastology MV E' medial 0.150 (>0.07 m/s) E/A Ratio 1.5 LV E/e MED 6.90 (<14) MV E Vmax 1.04 (0.4-1.3 m/s) MV E' lateral 0.159 (>0.1 m/s) MV A Vmax 0.70 (0.4-1.3 m/s) LV E/e LAT 6.50 (<14) MV E/A Ratio 1.42 MV E/E' medial 6.91 MV E/E' lateral 6.53 Aortic Valve LVOT Area 2.89 cm2 AoV Area Vmax 2.43 cm2 LVOT Vmax 1.30 m/s AoV Area/ BSA (Vmax) 1.03 cm2/m2 LVOT Mean Gregg. 0.90 m/s DAVID Mean Gregg. 2.47 cm2 LVOT Peak Grad 6.7 mmHg DAVID Mean Gregg. Index 1.05 cm2/m2 LVOT Mean Grad 3.7 mmHg LVOT VTI 0.269 m LVOT Diam s 1.90 cm AoV Vmax 1.54 m/s Velocity Ratio 0.84 AoV Mean Grgeg. 1.05 m/s AoV Peak Grad 9.5 mmHg LVOT SV 77.75 mL AoV Mean Grad 4.9 mmHg AoV VTI 0.283 m AoV Area VTI 2.75 cm2 AoV Area/ BSA (VTI) 1.17 cm/m2 Mitral Valve MV DT 177 (160-240 msec) MV PHT 51 msec MV Area PHT 4.29 cm2 Pulmonary Valve PV Vmax 1.15 (0.5-1.5 m/s) RVOT Peak Gr. 1.98 mmHg PV Peak Grad 5.3 mmHg RVOT Mean Gr. 1.05 mmHg PV Mean Grad 2.9 mmHg RVOT VTI 0.160 m PV VTI 0.255 m RVOT Vmax 0.70 m/s Tricuspid Valve TR Peak Grad 24.1 mmHg TR Vmax 2.46 m/s RA Pressure 3.00 mmHg RVSP (TR) 27.1 mmHg
[2020-05-19 08:06] LABS: Abs Immature Grans 0.02 10^3/uL (0.0-0.06); Absolute Basophil Count 0.04 10^3/uL (0.0-0.2); Absolute Eosinophil Count 0.44 10^3/uL (0.0-0.7); Absolute Lymphocyte Count 2.71 10^3/uL (1.2-3.4); Absolute Monocyte Count 0.36 10^3/uL (0.1-0.8); Absolute Neutrophil Count 3.02 10^3/uL (1.2-6.7); Basophils % 0.6; Eosinophils % 6.7; HGB 9.3 g/dL (11.2-15.7); Immature Grans % 0.3; Lymphocytes % 41.1; MCH 25.1 pg (27.0-33.0); MCV 81.1 fL (80-95); Monocytes % 5.5; Neutrophils % 45.8; Nucleated RBC 0 %; Platelet Count 308 10^3/uL (130-400); RDW 14.7 % (11.7-14.6); RDW-SD 43.3 fL; WBC 6.59 10^3/uL (4.4-10.8)
--- NOTE | 2020-05-19 08:23 | W.PM.PROGNOT ---
Subjective Subjective Interval history since last seen: QTc 510 ms last night, QTc 440 ms this am. Echo this am. Still on NS. No active bleeding. Objective Last Vital Signs Temp 36.8 C 05/19/20 06:00 Pulse 75 05/18/20 20:11 Resp 17 05/18/20 21:30 BP 120/70 05/18/20 20:11 Pulse Ox 95 05/18/20 21:30 Laboratory Results - last 24 hr 05/17/20 05/19/20 05/19/20 15:49 05:35 06:20 WBC 6.59 RBC 3.70 L Hgb 9.3 L Hct 30.0 L MCV 81.1 MCH 25.1 L MCHC 31.0 L RDW 14.7 H Plt Count 308 MPV 10.0 Immature Gran % 0.3 Neutrophils % 45.8 Lymphocytes % 41.1 Monocytes % 5.5 Eosinophils % 6.7 Basophils % 0.6 Nucleated RBC % 0 Absolute Neutrophils 3.02 Absolute Lymphocytes 2.71 Absolute Monocytes 0.36 Absolute Eosinophils 0.44 Absolute Basophils 0.04 Vitamin B12 Cancelled COVID-19 PCR Negative Nasopharyn COVID-19 PCR Not Applicable Ref Test Perform Site [facility]
[2020-05-19 08:29] LABS: Hemoglobin A1C 5.5 % (<5.7)
--- NOTE | 2020-05-19 08:29 | CMPROGNOTE_ITS ---
Care Management Progress Note S/O: Josephine will have an ECHO today, anticipate per results she with either have NPI stress test at [facility] or follow up as an outpatient. She was attached to a basketball coach, and CM discussed options for [facility] as well. Josephine is interested in transferring to [facility]. CM faxed clinicals and Josephine spoke directly to Admissions. Anticipate Luan will require transport home in [facility] to [facility]; awaiting imaging results and MD direction regarding discharge planning considerations. A: 30 year old female admitted to [facility] 05/20/20 for Cocaine and Opioid overdose, elevated troponin P: Josephine will require transport home in [facility] to [facility]; awaiting imaging results and MD direction regarding discharge planning considerations. Josephine will transport via [facility] coordinated by [facility]. CM will continue to support Josephine and her discharge needs.
--- NOTE | 2020-05-19 08:29 | PDOC.CMPRO ---
Care Management Progress Note S/O: Josephine will have an ECHO today, anticipate per results she with either have NPI stress test at [facility] or follow up as an outpatient. She was attached to a assistant baseball coach, and CM discussed options for [facility] as well. Josephine is interested in transferring to [facility]. CM faxed clinicals and Josephine spoke directly to Admissions. Anticipate Luan will require transport home in [facility] to [facility]; awaiting imaging results and MD direction regarding discharge planning considerations. A: 30 year old female admitted to [facility] 05/20/20 for Cocaine and Opioid overdose, elevated troponin P: Josephine will require transport home in [facility] to [facility]; awaiting imaging results and MD direction regarding discharge planning considerations. Josephine will transport via [facility] coordinated by [facility]. CM will continue to support Josephine and her discharge needs.
[2020-05-19] MEDS: Ferrous Sulfate 325 MG TAB PO (08:31)
[2020-05-19] MEDS: Aspirin E.C. 81 MG TABEC PO (08:31)
[2020-05-19] MEDS: Docusate Sodium 100 MG CAP PO (08:31)
[2020-05-19] MEDS: Ascorbic Acid 500 MG TAB 250 MG PO (08:34)
[2020-05-19] MEDS: Nicotine 14 MG/24 HR PATCH TD (08:38)
[2020-05-19 10:01] LABS: Anion Gap 7.8 mmol/L (3-11); BUN 8 mg/dL (7-18); CO2 25.2 mmol/L (21.0-32.0); CREATININE 0.61 mg/dL (0.55-1.02); Calcium 8.4 mg/dL (8.5-10.1); Calculated LDL 96 mg/dL (<100); Chloride 107 mmol/L (98-107); Cholesterol 164 mg/dL (<200); Glucose 82 mg/dL (74-106); HDL Cholesterol 60 mg/dL (40-60); Potassium 4.3 mmol/L (3.5-5.1); Sodium 140 mmol/L (136-145); Triglyceride 42 mg/dL (<150); Vitamin B12 216 pg/mL (193-986)
--- NOTE | 2020-05-19 10:22 | IN_ITS ---
Date of service: 05/19/20 Time of Service: 10:22 PT Notes Visit Reasons: COCAINE AND OPIOID OVERDOSE, ELEVATED TROPONIN Physical Therapy Inpatient Initial Evaluation Date: 05/19/2020 Referring Doctor: Negar Rod MD PT Orders: PT CONSULT: Limited ability. Question of left trapezius spasm Precautions: Fall. Standard. Activity as tolerated. Patient Profile/Admitting Diagnosis: Josephine is a 30-year-old female who presented to the ED on 05/17/2020 for evaluation of drug overdose. She is diagnosed with polysubstance overdose, elevated troponin, leukocytosis, and chest wall pain. PMHX: Medical History ADHD Anxiety disorder affecting , antepartum Asthma affecting , antepartum Cholecystitis Depression affecting , antepartum H/O abscess of skin and subcutaneous tissue H/O cocaine abuse H/O intravenous drug use in remission Herpes genitalia hx of fetus with hypoplastic L heart. Marijuana use Migraines Obesity (BMI 30-39.9) Tobacco use Surgical History Cholecystectomy 04/2011 Lap michael. Redd Incision & Drainage, Abscess or Hematoma (~11/2015) I+D multiple abcesses right foream which developed after skin popping cocaine Social History/Home Situation: Lives alone in a private home in the [facility]. Independent with all aspects of ADLs. 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 Equipment Owned/DME: None Subjective: Josephine reports considerable on palpation to bilateral trapezius with the left more than the right. She states that she has 7?8/10 pain on the left and 4/10 on the right. She also states that the pain tends to shoot to the front part of her neck as well. Symptoms just started on hospital admission. She states that pain is constant regardless of her position. Denies dizziness, blurriness of vision, nausea, and vomiting. Objective: General Observation: Telemetry in place. Mental Status: Alert and oriented x4 Pain: 7?8/10 on the left her middle and lower trapezius muscles; 4/10 in the right ROM: Right Upper Extremity: Shoulder Flexion WFL. Shoulder abduction WFL. Elbow flexion WFL. Wrist flexion WFL. Opening and closing of hand WFL. Left Upper Extremity: Shoulder Flexion allows only to about 90 degrees due to pain. Shoulder abduction allows only to about 90 degrees due to pain. Elbow flexion WFL. Wrist flexion WFL. Opening and closing of hand WFL. Right Lower Extremity: Hip flexion WFL. Hip abduction WFL. Knee flexion WFL. Ankle dorsiflexion WFL. Ankle plantarflexion WFL. Left Lower Extremity: Hip flexion WFL. Hip abduction WFL. Knee flexion WFL. Ankle dorsiflexion WFL. Ankle plantarflexion WFL. Strength: Right Upper Extremity: Shoulder flexors 5/5. Shoulder abductors 5/5. Elbow flexors 5/5. Elbow extensors 5/5. Aircraft Maintenance Engineer strong. Left Upper Extremity: Shoulder flexors 3-/5. Shoulder abductors 3-/5. Elbow flexors 4/5. Elbow extensors 5/5. Aircraft Maintenance Engineer strong. Right Lower Extremity: Hip flexors 5/5. Hip abductors 5/5. Knee flexors 5/5. Knee extensors 5/5. Ankle dorsiflexors 5/5. Ankle plantarflexors 5/5. Left Lower Extremity:Hip flexors 5/5. Hip abductors 5/5. Knee flexors 5/5. Knee extensors 5/5. Ankle dorsiflexors 5/5. Ankle plantarflexors 5/5. Sensation: Intact as to pain and pressure on bilateral lower extremities. Bed Mobility/Transfers: Rolling independent Supine to sit independent Sit to supine independent Sit to stand independent Stand to sit independent Bed to chair independent Chair to bed independent Gait: Supervision for interim ambulation from bed to bedside commode without an assistive device Balance: Static Sitting: Normal Dynamic Sitting: Normal Static Standing: Normal Dynamic Standing: Good Special Tests: Mobility Limitations Standardized Measure [facility] AM-PAC 6 clicks Basic Mobility Inpatient Short Form: Raw Score: 24 CMS Score: 0% deficit Informed Consent/Education: Patient instructed in purpose of PT consult and plan of care. Assessment: Josephine demonstrates weakness of shoulder flexion and extension resulting from impaired scapulohumeral rhythm from spasm in all the fibers (up per, middle, lower) of the L trapezius. The right side is not as tight as the other side. The anterior neck pain she complains of is mostly on the left side and radiates to the sensory distribution of C4 and C5 still on the left side of the anterior neck of equal intensity as the muscle itself. No report of accompanying lightheadedness, dizziness, nausea nor vomiting were reported. The repetitive lifting that she states she had done may be contributory to her new symptoms. Also, she might have assumed a sustained abnormal positioning while on drug overdose which may have triggered the muscle spasm. She will benefit from heat therapy to the L trapezius to increase its extensibility, from soft tissue release, and from gentle AROM to L shoulder in order to prepare herfor eventual return to work. She will also benfit from OP PT services to follow through on same interventions. Patient presents with clinical signs and symptoms consistent with current/admitting diagnoses that have resulted to mobility limitations, gait instability, generalized weakness, and impairment of motor control as demonstrated by the following impairment level findings: 1. Decreased strength to R shoulder flexors and abductors 2. Limitation of joint range of motion in flexion and abduction in L shoulder Impairments are contributing to the following functional limitations: 1. 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 Increase muscle strength to L shoulder to 3/5 in order to facilitate return to vocational activities 2. Increase AROM on L shoulder to at least 10 degrees to facilitate return to vocational activities Plan of Care/Treatment Plan: 1x/day x 3 days. Plan of care has been reviewed with the TRANSPORTATION DRIVER providing the service under Physical Therapy direction. Initiate Physical Therapy intervention for strengthening, bed mobility, transfers, gait, stairs, balance training, use of assistive device. DISCHARGE RECOMMENDATIONS: Outpatient PT services TREATMENT CODE/TIME: 04602 x 23 minutes beginning at 10:22 AM. Thank you for the opportunity to participate in the care of this patient. Tenisha Rivero PT, DPT, CLT [facility] [place], [place]
[2020-05-19] MEDS: Lidocaine 5% Patch 1 PATCH TP (10:34)
[2020-05-19 10:44] LABS: HIV-1/2 Ag & Ab Screen Negative (Negative)
[2020-05-19 11:13] LABS: HBs Antibody, Qual Positive (See Note); HBs Antibody, Quant 16.7 mIU/mL (See Note); Hepatitis B Core Antibody Negative (Negative); Hepatitis B surface Ag Negative (Negative); Hepatitis C Ab w Rflx HCV PCR Reactive (Negative)
--- NOTE | 2020-05-19 12:50 | CMDISCH_ITS ---
LACE Index Scoring Tool - Questions: Length of Stay (in days): 2 Acuity (Admit via E.D.?): Yes E.D. Visits: 1 - Answers: Total Score: 6 Risk of Readmission: Low Risk Care Management Discharge Reason for Hospitalization: polysubstance overdose Discharge Plan: Josephine will return home to [place], [place] to await admission to [facility]; she will [facility] by CM. Patient/Family Education Needs: Review of discharge instructions, discuss Ask Me Three. Josephine is advocating for returning home prior to admission to [facility].
--- NOTE | 2020-05-19 12:55 | DSE_ITS ---
Date of service: 05/19/20 Time of Service: 12:55 DS: Diagnosis Discharge Diagnosis (1) Polysubstance overdose: Status: Acute Asessment and Plan: unintentional (2) Elevated troponin: Status: Resolved Asessment and Plan: In setting of likely hypoxia during the overdose as well as probable coronary vasospasm from cocaine use (3) Prolonged QT interval: Status: Resolved (4) Leucocytosis: Status: Resolved Asessment and Plan: Reactive; no evidence of active infection (5) Muscle spasm: Status: Acute (6) Chest wall pain: Status: Acute Asessment and Plan: musculoskeletal (7) Cigarette nicotine dependence, uncomplicated: Status: Chronic (8) Iron deficiency anemia: Status: Chronic (9) Vitamin B12 deficiency: Status: Chronic (10) Tobacco abuse: Status: Chronic (11) Hepatitis C antibody test positive: Status: Acute (12) COVID-19 ruled out by laboratory testing: Status: Ruled-out Discharge Plan Disposition Patient Disposition: HOME Condition: Stable Discharge Details Reason For Visit: COCAINE AND OPIOID OVERDOSE, ELEVATED TROPONIN Admit Date/Time: 05/17/20 15:19 Admit Provider: Negar Rod Attending Provider: Negar Rod [facility] Hospital Course: Ms Kim is a 30 year old female with PMHx of polysubstance abuse, as well as ADHD, anxiety, and depression, who was a patient in [facility] ICU from 05/17/2020 until 05/19/2020 after an unintentional overdose with crack/cocaine (smoked) and suspected heroin (snorted). She was found unresponsive in the over the road driver's seat by EMS and required several doses of narcan to wake up. Her workup in the ED revealed an elevated troponin of (went from 0.10 on presentation to as high as 0.26 prior to trending down) without EKG evidence of ischemia. She also had a reactive leucocytosis without any evidence of infection. She was monitored in the ICU where there was evidence of transient QTc prolongation, presumably due to her trazodone, the dose of which was decreased to 100 mg with resolution of above. She underwent an echocardiogram which showed no evidence wall motion abnormality. It is felt that this patient's elevated troponins were due to either or both transient hypoxia due to the overdose or due to coronary vasospasm from cocaine. She is not felt to require further cardiac workup at this time. Her COVID-19 PCR was negative, and there were no symptoms or history thereof to suggest a COVID- 19 etiology to her troponinemia. The patient does have a lot of musculoskeletal chest pain as well as palpable trapezius spasm on the left. This is being treated with tylenol, NSAIDs, lidocaine patches, muscle relaxants (soma), heat, and physical therapy. She should follow up with her PCP for a referral to outpatient physical therapy in [facility] where she resides. There is evidence of both iron and B12 deficiency anemias, for which she was started on supplementation and which will need to be followed up as outpatient. The patient was checked for Hepatitis and HIV given her history of IVD use. Her HIV is negative. Hepatitis C antibody was positive. Hepatitis C viral load is pending at the time of discharge and should be followed up by PCP. She is vaccinated against hepatitis B. The patient was connected with a student success coach and a referral to [facility] rehab facility was sent. The patient is very motivated to go there, but would like to go home first and, if [facility] accepts her, will go there from home. She is medically stable for discharge home today with above follow ups. Care for patient as well as completion of her discharge summary on day of discharge took 1 hour. Home Meds and New Rx's Prescriptions: New ascorbic acid (vitamin C) [Vitamin C] 500 mg Tablet 250 mg PO BID Qty: 60 RF: 0 carisoprodol [Soma] 350 mg Tablet 350 mg PO TID PRN PRNQty: 15 RF: 0 docusate sodium [Colace] 100 mg Capsule 100 mg PO BID Qty: 60 RF: 0 ferrous sulfate 325 mg (65 mg iron) Tablet 325 mg PO BID Qty: 60 RF: 0 lidocaine [Lidoderm] 5 % Adhesive Patch,Medicated 2 patch topical Q24H Qty: 30 RF: 0 nicotine 14 mg/24 hr Patch 24 Hour 14 mg transdermal DAILY PRN PRNQty: 28 RF: 0 trazodone 100 mg tablet 100 mg PO QHS PRNQty: 30 RF: 0 cyanocobalamin (vitamin B-12) 1,000 mcg capsule 1,000 mcg PO DAILY Qty: 30 RF: 0 ibuprofen 600 mg tablet 600 mg PO Q6H PRN (Reason: pain) Qty: 30 RF: 0 Continued gabapentin 300 mg Tablet 300 - 600 mg PO QHS RF: 0 dextroamphetamine-amphetamine 10 mg tablet 10 mg PO BID RF: 0 Discontinued trazodone 150 mg Tablet 150 mg PO QHS RF: 0 Discharge Instructions Instructions: Cocaine Abuse (DC), Iron Deficiency Anemia (DC), Vitamin B12 Deficiency (GEN), Opioid Use Disorder (DC) Additional Instructions: Follow up with your student success coach and with Dereck Callaway. Return to the hospital with any fever, bleeding, chest pain, or shortness of maribel ath. Follow up with your PCP within 1 week for a physical therapy referral. For your back pain, use heat to relax the muscle spasm. Activity:: Activity as Tolerated Equipment/Supplies:: No Equipment Needed Diet:: As Tolerated Discharge Orders Discharge Orders: Discharge Order (Routine); Ordered 05/19/20 Ordered By: Negar Rod DS: Summary Status at Discharge Functional status at discharge: independent ambulation Overall status at discharge: patient is back to baseline Mental Status: mental status grossly normal Speech and Movement: speech and movement normal Mood: congruent mood Affect: normal affect Exam Narrative Exam Narrative: General: Pleasant obese female, A&Ox3, looks better today HEENT: EOMI, MMM. Palpable muscle spasm (?trapezius) on the L upper back. Cardiovascular: RRR, no m/r/g Lungs: CTAB Gastrointestinal: soft, nontender, nondistended, +BS Extremities: no e/c/c BLEs, 1+ pedal pulses B Psych Mental Status: mental status grossly normal Speech and Movement: speech and movement normal Mood: congruent mood Affect: normal affect DS: Data Vitals/I&O Vitals and I&O: Vital Signs Temperature 36.6 C 05/19/20 09:49 Temperature Source Temporal Artery Scan 05/19/20 09:49 Pulse 79 05/19/20 07:32 Pulse 89 05/19/20 12:00 Respiratory Rate 30 H 05/19/20 12:00 Respiratory Effort 05/19/20 09:49 Respiratory Depth Normal 05/19/20 09:49 Respiratory Pattern Normal 05/19/20 09:49 Blood Pressure 123/80 05/19/20 07:32 Blood Pressure Mean 90 05/19/20 07:32 Blood Pressure Position Supine 05/17/20 16:00 Pulse Oximetry 95 05/18/20 21:30 Oxygen Delivery Method Room Air 05/19/20 09:49 Oxygen Flow Rate 0 05/19/20 09:49 Pain Level 7 05/19/20 06:00 Intake & Output 05/18/20 05/19/20 05/19/20 23:59 11:59 23:59 Intake Total 1820.000 / 4160.000 240 / 480 240 / 480 Output Total 1350 / 1900 2550 / 2550 Balance 470.000 / 2260.000 -2310 / -2070 240 / -2070 Intake: IV 1000.000 / 3000.000 Oral 820 / 1160 240 / 480 240 / 480 Output: Urine 1350 / 1900 2550 / 2550 Other: Urine Color Pale Yellow Straw Urine Appearance Clear Clear Urine Odor Normal None Stool Occult Blood Negative Stool Size Small Moderate Stool Characteristics Soft Soft Formed Formed Brown Voiding Methods Bedside Commode Bedside Commode Data Completed and Pending Completed studies during hospitalization [Text1]: Echo 05/19/2020: Left Ventricle : The left ventricle is normal size. The left ventricular systolic function is normal. The left ventricular ejection fraction is within the normal range. There is normal left ventricular wall thickness. There is normal LV segmental wall motion. The left ventricular diastolic function is normal. LVEF is 55-58%. Right Ventricle : The right ventricle is normal size. The right ventricular systolic function is normal. Atria : The left atrium size is normal. The right atrium size is normal. Valves: There are no hemodynamically significant valvular lesions. Great Vessels : The aortic root is normal in size. The ascending aorta is normal in size. Aortic arch is normal in caliber. IVC is normal in size and collapses >50% with inspiration. Please see remainder of study for further details. CXR 05/18/2020: No evidence for acute pulmonary disease. CTA chest 05/17/2020:1. No evidence of pulmonary embolus to the segmental level. 2. No aneurysm of the aorta. 3. No dissection of the aorta. CXR 05/17/2020: No acute findings. Labs on day of discharge: Labs from last 24 hours 05/19/20 05/19/20 05/19/20 06:20 06:20 06:20 WBC 6.59 RBC 3.70 L Hgb 9.3 L Hct 30.0 L MCV 81.1 MCH 25.1 L MCHC 31.0 L RDW 14.7 H Plt Count 308 MPV 10.0 Immature Gran % 0.3 Neutrophils % 45.8 Lymphocytes % 41.1 Monocytes % 5.5 Eosinophils % 6.7 Basophils % 0.6 Nucleated RBC % 0 Absolute Neutrophils 3.02 Absolute Lymphocytes 2.71 Absolute Monocytes 0.36 Absolute Eosinophils 0.44 Absolute Basophils 0.04 Sodium 140 Potassium 4.3 Chloride 107 Carbon Dioxide 25.2 Anion Gap 7.8 BUN 8 Creatinine 0.61 Estimated GFR/1.73 m2 >= 60.00 Glucose 82 Hemoglobin A1c 5.5 Calcium 8.4 L Magnesium 2.0 Triglycerides 42 Total Cholesterol 164 LDL Cholesterol, Calc 96 HDL Cholesterol 60 Vitamin B12 216 Hep Bs Antigen Hep Bs Antibody Hep Bs Antibody, Quant Hep B Core Total Ab Hepatitis C Antibody HCV RNA Qual (PCR) Hepatitis C RNA Quant HIV 1&2 Ag/Ab, 4th Gen 05/19/20 05/18/20 05/18/20 05:35 06:40 06:40 WBC RBC Hgb Hct MCV MCH MCHC RDW Plt Count MPV Immature Gran % Neutrophils % Lymphocytes % Monocytes % Eosinophils % Basophils % Nucleated RBC % Absolute Neutrophils Absolute Lymphocytes Absolute Monocytes Absolute Eosinophils Absolute Basophils Sodium Potassium Chloride Carbon Dioxide Anion Gap BUN Creatinine Estimated GFR/1.73 m2 Glucose Hemoglobin A1c Calcium Magnesium Triglycerides Total Cholesterol LDL Cholesterol, Calc HDL Cholesterol Vitamin B12 Cancelled Hep Bs Antigen Negative Hep Bs Antibody Positive Hep Bs Antibody, Quant 16.7 Hep B Core Total Ab Negative Hepatitis C Antibody Reactive A HCV RNA Qual (PCR) Pending Hepatitis C RNA Quant Pending HIV 1&2 Ag/Ab, 4th Gen Negative Preliminary micro results at discharge 05/17/20 18:05 Blood Culture - Preliminary Blood NO GROWTH 24 HOURS 05/17/20 15:44 Blood Culture - Preliminary Blood NO GROWTH 24 HOURS [facility] Medical History (Updated 05/19/20 @ 13:29 by Negar Rod MD) ADHD Anxiety disorder affecting , antepartum Asthma affecting , antepartum Cholecystitis Depression affecting , antepartum H/O abscess of skin and subcutaneous tissue H/O cocaine abuse H/O intravenous drug use in remission Herpes genitalia hx of fetus with hypoplastic L heart. Marijuana use Migraines Obesity (BMI 30-39.9) Tobacco use Surgical History Cholecystectomy 04/2011 Lap chole. Redd Incision & Drainage, Abscess or Hematoma (~11/2015) I+D multiple abcesses right foream which developed after skin popping cocaine Family History (Updated 05/17/20 @ 16:51 by Negar Rod MD) Mother Alcohol abuse Essential hypertension Personal history of malignant neoplasm Breast cancer and pre-cancerous polyp of colon Mental disorder Hypertension Cancer colon cancer in the 50s, breast cancer Paternal Grandfather Heart disease Diabetes Maternal Grandmother Stroke Social History (Updated 05/17/20 @ 16:52 by Negar Rod MD) Smoking/Tobacco Use Status: Current every day Tobacco Type: cigarettes Tobacco: How many years used: 15 Quit status: not considering quitting Counseling given: provider counseling Alcohol Intake: never Drug use: Daily Substance use type: marijuana, crack/cocaine and heroin Details: had been sober for 2 1/2 years from crack/cocaine and heroin Do you feel safe at home: Yes Do you feel safe in your relationship?: Yes History History Para 1 Hx # Term Pregnancies Multiple births Hx # Pregnancies Ectopic pregnancies AB induced Hx Number of Living Children AB spontaneous
[2020-05-19] MEDS: diazePAM 2 MG TAB PO (12:56)
--- NOTE | 2020-05-19 13:08 | INDS_ITS ---
Date of service: 05/19/20 PT Notes Visit Reasons: COCAINE AND OPIOID OVERDOSE, ELEVATED TROPONIN Physical Therapy Inpatient Discharge Summary Date: 05/19/2020 Dates of Service: 05/19/2020 only Referring Doctor: Negar Rod MD PT Orders: PT CONSULT: Limited ability. Question of left trapezius spasm Precautions: Fall. Standard. Activity as tolerated. Patient Profile/Admitting Diagnosis: Josephine is a 30-year-old female who presented to the ED on 05/17/2020 for evaluation of drug overdose. She is diagnosed with polysubstance overdose, elevated troponin, leukocytosis, and chest wall pain. PMHX: Medical History ADHD Anxiety disorder affecting , antepartum Asthma affecting , antepartum Cholecystitis Depression affecting , antepartum H/O abscess of skin and subcutaneous tissue H/O cocaine abuse H/O intravenous drug use in remission Herpes genitalia hx of fetus with hypoplastic L heart. Marijuana use Migraines Obesity (BMI 30-39.9) Tobacco use Surgical History Cholecystectomy 04/2011 Lap michaeliona Tillmanen Incision & Drainage, Abscess or Hematoma (~11/2015) I+D multiple abcesses right foream which developed after skin popping cocaine Social History/Home Situation: Lives alone in a private home in the [facility]. Independent with all aspects of ADLs. 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 Equipment Owned/DME: None Subjective: Looks forward to going home. Has good understanding of shoulder and neck relaxation exercises on physical Therapy Inpatient Discharge Summary Objective: General Observation: Telemetry in place. Mental Status: Alert and oriented x4 Pain: 5-6/10 on the left her middle and lower trapezius muscles; 4/10 in the right ROM: Right Upper Extremity: Shoulder Flexion WFL. Shoulder abduction WFL. Elbow flexion WFL. Wrist flexion WFL. Opening and closing of hand WFL. Left Upper Extremity: Shoulder Flexion allows only to about 90 degrees due to pain. Shoulder abduction allows only to about 90 degrees due to pain. Elbow flexion WFL. Wrist flexion WFL. Opening and closing of hand WFL. Right Lower Extremity: Hip flexion WFL. Hip abduction WFL. Knee flexion WFL. Ankle dorsiflexion WFL. Ankle plantarflexion WFL. Left Lower Extremity: Hip flexion WFL. Hip abduction WFL. Knee flexion WFL. Ankle dorsiflexion WFL. Ankle plantarflexion WFL. Strength: Right Upper Extremity: Shoulder flexors 5/5. Shoulder abductors 5/5. Elbow flexors 5/5. Elbow extensors 5/5. Production Control Specialist strong. Left Upper Extremity: Shoulder flexors 3-/5. Shoulder abductors 3-/5. Elbow flexors 4/5. Elbow extensors 5/5. Production Control Specialist strong. Right Lower Extremity: Hip flexors 5/5. Hip abductors 5/5. Knee flexors 5/5. Knee extensors 5/5. Ankle dorsiflexors 5/5. Ankle plantarflexors 5/5. Left Lower Extremity:Hip flexors 5/5. Hip abductors 5/5. Knee flexors 5/5. Knee extensors 5/5. Ankle dorsiflexors 5/5. Ankle plantarflexors 5/5. Sensation: Intact as to pain and pressure on bilateral lower extremities. Bed Mobility/Transfers: Rolling independent Supine to sit independent Sit to supine independent Sit to stand independent Stand to sit independent Bed to chair independent Chair to bed independent Gait: Supervision for iin room ambulation from bed to bedside commode without an assistive device Balance: Static Sitting: Normal Dynamic Sitting: Normal Static Standing: Normal Dynamic Standing: Good Assessment: Josephine demonstrates weakness of shoulder flexion and extension resulting from impaired scapulohumeral rhythm from spasm in all the fibers (upper, middle, lower) of the L trapezius. The right side is not as tight as the other side. The anterior neck pain she complains of is mostly on the left side and radiates to the sensory distribution of C4 and C5 still on the left side of the anterior neck of equal intensity as the muscle itself. No report of accompanying lightheadedness, dizziness, nausea nor vomiting were reported. The repetitive lifting that she states she had done may be contributory to her new symptoms. Also, she might have assumed a sustained abnormal positioning while on drug overdose which may have triggered the muscle spasm. She will benefit from heat therapy to the L trapezius to increase its extensibility, from soft tissue release, and from gentle AROM to L shoulder in order to prepare herfor eventual return to work. She will also benfit from OP PT services to follow through on same interventions. Patient presents with clinical signs and symptoms consistent with current/admitting diagnoses that have resulted to mobility limitations, gait instability, generalized weakness, and impairment of motor control as demonstrated by the following impairment level findings: 1. Decreased strength to R shoulder flexors and abductors 2. Limitation of joint range of motion in flexion and abduction in L shoulder Impairments are contributing to the following functional limitations: 1. 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 Increase muscle strength to L shoulder to 3/5 in order to facilitate return to vocational activities NOT MET 2. Increase AROM on L shoulder to at least 10 degrees to facilitate return to vocational activities NOT MET DISCHARGE RECOMMENDATIONS: Continue with outpatient PT services TREATMENT CODE/TIME: 53819 x 24 minutes beginning at 13:08 PM. Thank you for the opportunity to participate in the care of this patient. Tenisha Rivero PT, DPT, CLT [facility] [place], [place]
[2020-05-21 14:37] LABS: HCV RNA Qualitative Undetected (Undetected)
== END 2020-05-19 15:00 | disposition home or self-care (01) | DRG 918 ==
LOC: ER 16:00 → ICU 16:04
PROVIDERS: Student in an Organized Health Care Education/Training Program; Admitting Provider Internal Medicine; Emergency Provider Physician Assistant; Visit Provider Internal Medicine
DX: T40.1X1A Poisoning by heroin, accidental (unintentional), initial encounter (principal); B17.10 Acute hepatitis C without hepatic coma; Z03.818 Encounter for observation for suspected exposure to other biological agents ruled out; T40.5X1A Poisoning by cocaine, accidental (unintentional), initial encounter; R07.89 Other chest pain; R00.0 Tachycardia, unspecified; J45.909 Unspecified asthma, uncomplicated; F32.9 Major depressive disorder, single episode, unspecified; F41.9 Anxiety disorder, unspecified; E66.9 Obesity, unspecified; F17.210 Nicotine dependence, cigarettes, uncomplicated; G43.909 Migraine, unspecified, not intractable, without status migrainosus; A60.00 Herpesviral infection of urogenital system, unspecified; F90.9 Attention-deficit hyperactivity disorder, unspecified type; R09.02 Hypoxemia; I51.89 Other ill-defined heart diseases; D72.829 Elevated white blood cell count, unspecified; D50.9 Iron deficiency anemia, unspecified; M62.838 Other muscle spasm; R94.31 Abnormal electrocardiogram [ECG] [EKG]; E53.8 Deficiency of other specified B group vitamins
CPT/HCPCS: 36415; 71275; 80048; 80053; 80061; 80076; 80307; 82550; 84145; 86704; 86706; 86803; 87040; 87340; 87389; 87522; 90686; 93005; 94640; 96361; 96365; 96366; 96372; 96375; 97140; 97162; 99223; 99232; 99239; 99285; U0003; 71045; 81003; 81015; 82607; 82728; 83036; 83540; 83550; 83605; 83735; 83880; 84439; 84443; 84484; 84703; 85025; 86140; 87086; 93010; 93306; J0131; J0780; J1885; J2060; J3490

== ENCOUNTER 2021-03-03 12:30 | Outpatient (REF) | payer MEDICAID, SELFPAY | END 2021-03-03 12:31 | disposition home or self-care (01) | LOC: LBN 12:30 | PROVIDERS: Visit Provider Advanced Practice Midwife | DX: A59.01 Trichomonal vulvovaginitis (principal) | CPT/HCPCS: 87480; 87510; 87660 ==

== ENCOUNTER 2021-03-09 13:53 | Outpatient (REF) | payer MEDICAID, SELFPAY ==
[2021-03-09 19:00] LABS: *AMPHETAMINES SCREEN URINE Negative (Negative); *BARBITURATES SCREEN URINE Negative (Negative); *BENZODIAZEPINES SCREEN URINE Negative (Negative); Cannabinoids THC Positive (Negative); Cocaine Screen,Urine Positive (Negative); METHADONE URINE SCREEN Negative (Negative); OPIATES URINE SCREEN Negative (Negative); Tricyclic Antidepressants Negative (Negative)
[2021-03-13 14:37] LABS: Buprenorphine Negative ng/mL (Cutoff: 5.0); Norbuprenorphine Negative ng/mL (Cutoff: 2.5)
== END 2021-03-09 13:54 | disposition home or self-care (01) ==
LOC: LBN 13:53
PROVIDERS: Advanced Practice Midwife; Visit Provider Physician Assistant Medical
DX: Z34.93 Encounter for supervision of normal pregnancy, unspecified, third trimester (principal); Z36.85 Encounter for antenatal screening for Streptococcus B; Z3A.36 36 weeks gestation of pregnancy
CPT/HCPCS: 80307; 87081

== ENCOUNTER 2021-03-10 01:35 | Outpatient (CLI) | payer MEDICAID, SELFPAY ==
--- NOTE | 2021-03-10 08:00 | DI.US_ITS ---
Exam(s) US OB EMILIA WEIGHT EXAM: US OB EMILIA WEIGHT CLINICAL HISTORY: growth and presentation,Z34.90. COMPARISON: No exams were available for comparison TECHNIQUE: Transabdominal ultrasound performed. FINDINGS: Sonographic images demonstrate a single intrauterine gestation in cephalic position. Sonographically assessed gestational age is: 36 weeks 1 day Estimated date of delivery based on this ultrasound is: 06 April 2021 Estimated date of delivery based upon LMP: 01 April 2021 heart rate motion was not detected. No motion was detected. Amniotic fluid index: 16.9 cm. Largest pocket of fluid measures 8.5 cm. Amount of fluid is within nor mal limits. Estimated weight 2909 grams, 41 percentile IMPRESSION: Findings consistent with demise. DATA REPOSITORY:
== END 2021-03-10 01:55 ==
PROVIDERS: Visit Provider Advanced Practice Midwife
DX: Z34.93 Encounter for supervision of normal pregnancy, unspecified, third trimester (principal); Z3A.36 36 weeks gestation of pregnancy
CPT/HCPCS: 76816

== ENCOUNTER 2021-03-11 11:12 | Inpatient (IN) | payer MEDICAID, SELFPAY ==
--- NOTE | 2021-03-11 11:00 | NUR.NOTE ---
Pt arrived to , with ARGENTINA Conklin, for induction of labor of a 27 week demise. pt reports FOB to be uninvolved, but states she made several attempts to contact and update him since yesterday. Pt appears teary and emotionally appropriate. oriented to room, call canales, bathroom, plan of care. Pain management and disposition of baby briefly discussed. Emotional support to pt and Rubin ELAINE.
[2021-03-11 11:12] VITALS: BP 125/67; PULSE 81; RESP 18; TEMP 36.8; O2SAT 99
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
[2021-03-11] MEDS: miSOPROStol 25 MCG TAB PO (12:00)
[2021-03-11 12:36] VITALS: BP 126/66; PULSE 74; RESP 16; TEMP 36.7; O2SAT 99
[2021-03-11 12:51] LABS: Source Nasal/Nares
--- NOTE | 2021-03-11 13:27 | NUR.NOTE ---
Pt made aware that chaplan was in hospital for emotional/ spiritual support, if pt desires. Pt requests to speak with chaplan. Rosa M Mcgraw, sergio called. Nursing Note:
--- NOTE | 2021-03-11 13:32 | CMPROGNOTE_ITS ---
- If Service Date Differs Date of service: 03/11/21 Time of Service: 13:32 Care Management Progress Note 1145 Huddle with RN: Josephine Pat: Director, NS: WILDER RodriguezCM: Mei and this telegraphic typewriter installer. Reviewed roles and case pertinent interventions including CM assessment, paperwork required, likelihood of autopsy, case review, DCF, etc. CM met with Josephine to review paperwork needs as determined by patient's decisions re: autopsy and burial. 1210 Met with Josephine and her significant other, Rubin who were eating lunch. CM reviewed role and support provided through Care Management and discussed service attachment, review of resources. Josephine reported her anxiety felt managed at this time and she did not feel overwhelmed and did feel well supported. Josephine will begin laboring, per provider, CM anticipates follow up with her in the morning and notified center.
[2021-03-11 13:33] LABS: HCT 28.5 % (36.0-46.0); HGB 9.3 g/dL (11.2-15.7); MCH 26.5 pg (27.0-33.0); MCHC 32.6 % (32.0-36.0); MCV 81.2 fL (80-95); MPV 11.3 fL (8.0-11.0); Platelet Count 237 10^3/uL (130-400); RBC 3.51 10^6/uL (3.93-5.22); RDW-SD 41.1 fL; WBC 9.51 10^3/uL (4.4-10.8)
[2021-03-11 13:43] LABS: COVID-19 PCR Negative (Negative)
[2021-03-11 13:47] LABS: INR 0.9 (0.9-1.1); PTT Activated 22.3 sec (21.0-27.5); Prothrombin Time 8.9 sec (9.3-11.0)
[2021-03-11 13:51] LABS: ALT 11 U/L (14-59); AST 14 U/L (15-37); Albumin 2.3 g/dL (3.4-5.0); Alkaline Phosphatase 115 U/L (46-116); Anion Gap 10.8 mmol/L (3-11); BUN 6 mg/dL (7-18); Bilirubin, Direct 0.1 mg/dL (0.0-0.2); Bilirubin, Total 0.2 mg/dL (0.2-1.0); CO2 19.2 mmol/L (21.0-32.0); CREATININE 0.5 mg/dL (0.55-1.02); Calcium 8.8 mg/dL (8.5-10.1); Chloride 108 mmol/L (98-107); Glucose 98 mg/dL (74-106); Potassium 3.9 mmol/L (3.5-5.1); Sodium 138 mmol/L (136-145); Total Protein 6.8 g/dL (6.4-8.2)
[2021-03-11 14:01] LABS: TSH (W/Ref FT4) 1.33 uIU/mL (0.36-3.74)
[2021-03-11] MEDS: metroNIDAZOLE 500 MG/100 ML BAG 100 MG IVPB (14:01)
--- NOTE | 2021-03-11 14:54 | CHAPLAIN ---
I visited with Josephine this afternoon. Her boyfriend, Rubin, was in the room. He left his earphones on and did not participate in our conversation. Josephine was teary at times and we talked about how it's a good relief to cry and she might find herself crying at odd moments after she gets back to her usual routines. She has named the baby Tanvi Back. A heartbeat was detected one day, and then not the next. She will deliver the baby now, at 36 weeks. She asked questions about how the baby may look when she's born and I suggested she talk to her nurse about that. She knows she will be able to hold the baby for as long as she'd like. Josephine said she would talk with Care Management about cremation plans. We talked about how unfair life can seem, and how not everything happens for a reason as some people like to insist. Josephine talked about the important days in Tanvi's like that she will miss, and mentioned a few times that parents are not suppose to bury their children. She said her dad lives nearby and she has grandmother in [place], but Josephine did explain if she is close to them.
--- NOTE | 2021-03-11 15:14 | NUR.NOTE ---
Wanda Landeros called to check in on pt. Plan to call tomorrow as pt is currently here for induction. Nursing Note:
--- NOTE | 2021-03-11 15:37 | W.PM.OBNL1 ---
Date of service: 03/11/21 Time of Service: 15:38 Informed Consent Informed Consent: Induction of Labor (patient agrees to induction of labor and denies questions) Pelvic Exam Dilation: 3.5 Effacement (%): 60 station: -2 Cervix Position: posterior Consistency: soft Vaginal Exam Presentation: Cephalic Contractions Monitor Mode: Palpation Contraction Frequency(min): irregular Intensity: Mild Fetus A Assessment Note: No monitoring due to IUFD. Assessment and Plan Assessment and plan (1) Encounter for induction of labor: Start date: 03/11/21 Start time: 15:42 Status: Acute Assessment and plan: will begin pitocin augmentation. We have discussed pain relief measures. We have discussed holding baby after delivery and briefly discussed autopsy, cyto-genetics and placenatal pathology, patient is considering her options. Objective Abnormal lab results 03/11/21 03/11/21 03/11/21 Range/Units 11:12 13:10 13:10 RBC 3.51 L (3.93-5.22) 10^6/uL Hgb 9.3 L (11.2-15.7) g/dL Hct 28.5 L (36.0-46.0) % MCH 26.5 L (27.0-33.0) pg MPV 11.3 H (8.0-11.0) fL PT 8.9 L (9.3-11.0) sec Chloride 108 H (98-107) mmol/L Carbon Dioxide 19.2 L (21.0-32.0) mmol/L BUN 6 L (7-18) mg/dL Creatinine 0.5 L (0.55-1.02) mg/dL AST 14 L (15-37) U/L ALT 11 L (14-59) U/L Albumin 2.3 L (3.4-5.0) g/dL Temp Pulse Resp BP Pulse Ox 98.1 F 74 16 126/66 99 03/11/21 12:36 03/11/21 12:36 03/11/21 12:36 03/11/21 12:36 03/11/21 12:36 Laboratory Results WBC 9.51 10^3/uL (4.4-10.8) 03/11/21 11:12 RBC 3.51 10^6/uL (3.93-5.22) L 03/11/21 11:12 Hgb 9.3 g/dL (11.2-15.7) L 03/11/21 11:12 Hct 28.5 % (36.0-46.0) L 03/11/21 11:12 MCV 81.2 fL (80-95) 03/11/21 11:12 MCH 26.5 pg (27.0-33.0) L 03/11/21 11:12 MCHC 32.6 % (32.0-36.0) 03/11/21 11:12 RDW 14.0 % (11.7-14.6) 03/11/21 11:12 Plt Count 237 10^3/uL (130-400) 03/11/21 11:12 MPV 11.3 fL (8.0-11.0) H 03/11/21 11:12 PT 8.9 sec (9.3-11.0) L 03/11/21 13:10 INR 0.9 (0.9-1.1) 03/11/21 13:10 APTT 22.3 sec (21.0-27.5) 03/11/21 13:10 Sodium 138 mmol/L (136-145) 03/11/21 13:10 Potassium 3.9 mmol/L (3.5-5.1) 03/11/21 13:10 Chloride 108 mmol/L (98-107) H 03/11/21 13:10 Carbon Dioxide 19.2 mmol/L (21.0-32.0) L 03/11/21 13:10 Anion Gap 10.8 mmol/L (3-11) 03/11/21 13:10 BUN 6 mg/dL (7-18) L 03/11/21 13:10 Creatinine 0.5 mg/dL (0.55-1.02) L 03/11/21 13:10 Estimated GFR/1.73 m2 >= 60.00 (mL/min/1.73m2) 03/11/21 13:10 Glucose 98 mg/dL (74-106) 03/11/21 13:10 Calcium 8.8 mg/dL (8.5-10.1) 03/11/21 13:10 Total Bilirubin 0.2 mg/dL (0.2-1.0) 03/11/21 13:10 Conjugated Bilirubin 0.1 mg/dL (0.0-0.2) 03/11/21 13:10 AST 14 U/L (15-37) L 03/11/21 13:10 ALT 11 U/L (14-59) L 03/11/21 13:10 Alkaline Phosphatase 115 U/L (46-116) 03/11/21 13:10 Total Protein 6.8 g/dL (6.4-8.2) 03/11/21 13:10 Albumin 2.3 g/dL (3.4-5.0) L 03/11/21 13:10 TSH 1.33 uIU/mL (0.36-3.74) 03/11/21 13:10 CSF Toxo. gondii Source Cancelled 03/11/21 Unknown COVID-19 Source Nasal/Nares 03/11/21 12:40 SARS-CoV-2 (PCR) Negative (Negative) 03/11/21 12:40 HIV 1&2 Antibody Rapid Cancelled 03/11/21 11:17 T. gondii DNA PCR Cancelled 03/11/21 Unknown Patient ABO/Rh O Positive 03/11/21 13:10 Antibody Screen NEGATIVE 03/11/21 13:10 Vital Signs Reviewed: Yes Subjective Interval history since last seen: Feeling cramping but not uncomfortable yet. Is looking to start pitocin as that has worked well for her in the past. Is interested in IV pain medication and or nitrous as needed, orders will be placed. We reviewed pitocin use and risks, benefits and alternatives and she would like to move forward when able. Denies questions. Josephine is comfortable wearing the toco for contractions while on pitocin. Nursing notified. Interventions Augmentation (will begin pitocin at approximately 1600.) , Pitocin rate (mU/min): 2 (will start at 2 mu and increase by 2mu every 30 minutes until acitve labor) Results Hemoglobin/Hematocrit: Hgb 9.3 g/dL (11.2-15.7) L 03/11/21 11:12 Hct 28.5 % (36.0-46.0) L 03/11/21 11:12 Abnormal Lab Findings: Abnormal Labs 03/11/21 03/11/21 03/11/21 11:12 13:10 13:10 RBC 3.51 L Hgb 9.3 L Hct 28.5 L MCH 26.5 L MPV 11.3 H PT 8.9 L Chloride 108 H Carbon Dioxide 19.2 L BUN 6 L Creatinine 0.5 L AST 14 L ALT 11 L Albumin 2.3 L
[2021-03-11] MEDS: Normal Saline 500 ML IV (16:12)
[2021-03-11] MEDS: Oxytocin/Normal Saline 30 UNIT/500 ML BAG 2 UNITS IV ×3 (16:15→17:30)
[2021-03-11 18:38] VITALS: BP 119/78; PULSE 80
[2021-03-11 19:24] VITALS: BP 116/74; PULSE 82
[2021-03-11 20:57] VITALS: BP 141/70; PULSE 80; RESP 18; TEMP 36.8
--- NOTE | 2021-03-11 21:14 | W.PM.OBNL1 ---
Date of service: 03/11/21 Time of Service: 21:15 Informed Consent Informed Consent: Induction of Labor (patient agrees to induction of labor and denies questions) Pelvic Exam Dilation: 6 Effacement (%): 80 station: -2 Cervix Position: posterior Consistency: soft Vaginal Exam Presentation: Cephalic Comments: AROM done at time of exam for large amount of pale yellow fluid. Contractions Contraction Frequency(min): 2-4 Contraction Duration(sec): 60-80 Intensity: Moderate/Strong Fetus A Assessment Note: N/A due to demise. Assessment and Plan Assessment and plan (1) Encounter for induction of labor: Status: Acute Assessment and plan: pitocin at 12 mu (2) demise in [place] greater than 22 weeks gestation, antepartum: Status: Acute Assessment and plan: we have discussed autopsy and patient has decided she does not want that done but that cyto-genetic testing off placenta and placental pathology should be done. She agrees to remain here overnight PP as she understands she will need supports in place for grieving and emotional support after she leaves hospital. we will also arrange for short interval follow up in office. Objective Abnormal lab results 03/11/21 03/11/21 03/11/21 Range/Units 11:12 13:10 13:10 RBC 3.51 L (3.93-5.22) 10^6/uL Hgb 9.3 L (11.2-15.7) g/dL Hct 28.5 L (36.0-46.0) % MCH 26.5 L (27.0-33.0) pg MPV 11.3 H (8.0-11.0) fL PT 8.9 L (9.3-11.0) sec Chloride 108 H (98-107) mmol/L Carbon Dioxide 19.2 L (21.0-32.0) mmol/L BUN 6 L (7-18) mg/dL Creatinine 0.5 L (0.55-1.02) mg/dL AST 14 L (15-37) U/L ALT 11 L (14-59) U/L Albumin 2.3 L (3.4-5.0) g/dL Temp Pulse Resp BP Pulse Ox 98.1 F 80 16 141/70 H 99 03/11/21 12:36 03/11/21 20:57 03/11/21 12:36 03/11/21 20:57 03/11/21 12:36 Laboratory Results WBC 9.51 10^3/uL (4.4-10.8) 03/11/21 11:12 RBC 3.51 10^6/uL (3.93-5.22) L 03/11/21 11:12 Hgb 9.3 g/dL (11.2-15.7) L 03/11/21 11:12 Hct 28.5 % (36.0-46.0) L 03/11/21 11:12 MCV 81.2 fL (80-95) 03/11/21 11:12 MCH 26.5 pg (27.0-33.0) L 03/11/21 11:12 MCHC 32.6 % (32.0-36.0) 03/11/21 11:12 RDW 14.0 % (11.7-14.6) 03/11/21 11:12 Plt Count 237 10^3/uL (130-400) 03/11/21 11:12 MPV 11.3 fL (8.0-11.0) H 03/11/21 11:12 PT 8.9 sec (9.3-11.0) L 03/11/21 13:10 INR 0.9 (0.9-1.1) 03/11/21 13:10 APTT 22.3 sec (21.0-27.5) 03/11/21 13:10 Sodium 138 mmol/L (136-145) 03/11/21 13:10 Potassium 3.9 mmol/L (3.5-5.1) 03/11/21 13:10 Chloride 108 mmol/L (98-107) H 03/11/21 13:10 Carbon Dioxide 19.2 mmol/L (21.0-32.0) L 03/11/21 13:10 Anion Gap 10.8 mmol/L (3-11) 03/11/21 13:10 BUN 6 mg/dL (7-18) L 03/11/21 13:10 Creatinine 0.5 mg/dL (0.55-1.02) L 03/11/21 13:10 Estimated GFR/1.73 m2 >= 60.00 (mL/min/1.73m2) 03/11/21 13:10 Glucose 98 mg/dL (74-106) 03/11/21 13:10 Calcium 8.8 mg/dL (8.5-10.1) 03/11/21 13:10 Total Bilirubin 0.2 mg/dL (0.2-1.0) 03/11/21 13:10 Conjugated Bilirubin 0.1 mg/dL (0.0-0.2) 03/11/21 13:10 AST 14 U/L (15-37) L 03/11/21 13:10 ALT 11 U/L (14-59) L 03/11/21 13:10 Alkaline Phosphatase 115 U/L (46-116) 03/11/21 13:10 Total Protein 6.8 g/dL (6.4-8.2) 03/11/21 13:10 Albumin 2.3 g/dL (3.4-5.0) L 03/11/21 13:10 TSH 1.33 uIU/mL (0.36-3.74) 03/11/21 13:10 CSF Toxo. gondii Source Cancelled 03/11/21 Unknown COVID-19 Source Nasal/Nares 03/11/21 12:40 SARS-CoV-2 (PCR) Negative (Negative) 03/11/21 12:40 HIV 1&2 Antibody Rapid Cancelled 03/11/21 11:17 T. gondii DNA PCR Cancelled 03/11/21 Unknown Patient ABO/Rh O Positive 03/11/21 13:10 Antibody Screen NEGATIVE 03/11/21 13:10 Vital Signs Reviewed: Yes Notable Details: most recent BP was obtained during contraction.JUAN Subjective Interval history since last seen: would like AROM and get this over with. Patient and support person had an argument and were yelling at each other but both have settled and agree they are just so upset it makes every little thing seem big. Josephine has decided she does not want autopsy and would like to have placental cyto-genetic testing done as well as placental pathology. She is aware that a segment of cord will also be tested to include drug history. Josephine is using nitrous for pain relief and working well with her contractions. Rubin is sitting close by quietly but agrees to remain as support. Results Hemoglobin/Hematocrit: Hgb 9.3 g/dL (11.2-15.7) L 03/11/21 11:12 Hct 28.5 % (36.0-46.0) L 03/11/21 11:12 Abnormal Lab Findings: Abnormal Labs 03/11/21 03/11/21 03/11/21 11:12 13:10 13:10 RBC 3.51 L Hgb 9.3 L Hct 28.5 L MCH 26.5 L MPV 11.3 H PT 8.9 L Chloride 108 H Carbon Dioxide 19.2 L BUN 6 L Creatinine 0.5 L AST 14 L ALT 11 L Albumin 2.3 L
[2021-03-11 22:00] VITALS: BP 127/66; PULSE 88; RESP 18; TEMP 36.3
[2021-03-11] MEDS: Normal Saline Flush 10 ML SYR IVP (22:44)
[2021-03-12] VITALS (14 sets, daily range): BP systolic 104–171; BP diastolic 56–84; PULSE 79–107; RESP 16; TEMP 36.4–36.8; O2SAT 98
[2021-03-12] MEDS: Ondansetron 4 MG/2 ML VIAL IVP (00:29)
[2021-03-12] MEDS: Normal Saline Flush 10 ML SYR IVP ×2 (00:29→01:33)
--- NOTE | 2021-03-12 03:18 | PLAC_PTH ---
PATIENT: Josephine Kim LOC: OBS U#:[id number] AGE/SX: 31/F ROOM: OBS.306 RE03/11/[address]: Lore Jara CNM : 1990 BED: A DIS: 03/12/2021 SPEC #: [id number] RECD: 03/12/21 12:22 STATUS: RAMOS REQ #: [id number] CHA: 03/12/21 03:[address]: Lore Jara DEPT: Surgical Specimen RECD BY: Melissa Joseph ENTERED: 03/12/21 12:29 SP TYPE: PLAC OTHR DR: No Local Tissues: 1 - PLACENTA (3RD TRIMESTER) CHROMOSOME ANALYSIS PROFILE Procedures: GROSS AND MICRO LEVEL 5 CHROMOSOME ANALYSIS 15-20 CELLS CHROMOSOME ANALYSIS TISSUE CULTURE Comments: [id number] ([facility] - [id number])
--- NOTE | 2021-03-12 03:33 | PGE_ITS ---
Date of service: 03/12/21 Time of Service: 02:38 Informed Consent Informed Consent: Induction of Labor (patient agrees to induction of labor and denies questions) Pelvic Exam Dilation: 7 Effacement (%): 90 station: -2 Vaginal Exam Presentation: Cephalic Contractions Monitor Mode: Internal Contraction Frequency(min): 2-3 Contraction Duration(sec): 60 Intensity: Strong Fetus A Assessment Note: N/A Assessment and Plan Assessment and plan (1) demise in [place] greater than 22 weeks gestation, antepartum: Status: Acute Assessment and plan: Anesthesia called to do intrathecal or epidural due to lack of progress, patient ambulated to BR to void prior to procedure. aware. JUAN (2) Encounter for induction of labor: Status: Acute Assessment and plan: pitocin off while awaiting anesthesia. JUAN Objective Abnormal lab results 03/11/21 03/11/21 03/11/21 Range/Units 11:12 13:10 13:10 RBC 3.51 L (3.93-5.22) 10^6/uL Hgb 9.3 L (11.2-15.7) g/dL Hct 28.5 L (36.0-46.0) % MCH 26.5 L (27.0-33.0) pg MPV 11.3 H (8.0-11.0) fL PT 8.9 L (9.3-11.0) sec Chloride 108 H (98-107) mmol/L Carbon Dioxide 19.2 L (21.0-32.0) mmol/L BUN 6 L (7-18) mg/dL Creatinine 0.5 L (0.55-1.02) mg/dL AST 14 L (15-37) U/L ALT 11 L (14-59) U/L Albumin 2.3 L (3.4-5.0) g/dL Temp Pulse Resp BP Pulse Ox 97.3 F L 100 H 18 129/75 99 03/11/21 22:00 03/12/21 03:26 03/11/21 22:00 03/12/21 03:26 03/11/21 12:36 Laboratory Results WBC 9.51 10^3/uL (4.4-10.8) 03/11/21 11:12 RBC 3.51 10^6/uL (3.93-5.22) L 03/11/21 11:12 Hgb 9.3 g/dL (11.2-15.7) L 03/11/21 11:12 Hct 28.5 % (36.0-46.0) L 03/11/21 11:12 MCV 81.2 fL (80-95) 03/11/21 11:12 MCH 26.5 pg (27.0-33.0) L 03/11/21 11:12 MCHC 32.6 % (32.0-36.0) 03/11/21 11:12 RDW 14.0 % (11.7-14.6) 03/11/21 11:12 Plt Count 237 10^3/uL (130-400) 03/11/21 11:12 MPV 11.3 fL (8.0-11.0) H 03/11/21 11:12 PT 8.9 sec (9.3-11.0) L 03/11/21 13:10 INR 0.9 (0.9-1.1) 03/11/21 13:10 APTT 22.3 sec (21.0-27.5) 03/11/21 13:10 Sodium 138 mmol/L (136-145) 03/11/21 13:10 Potassium 3.9 mmol/L (3.5-5.1) 03/11/21 13:10 Chloride 108 mmol/L (98-107) H 03/11/21 13:10 Carbon Dioxide 19.2 mmol/L (21.0-32.0) L 03/11/21 13:10 Anion Gap 10.8 mmol/L (3-11) 03/11/21 13:10 BUN 6 mg/dL (7-18) L 03/11/21 13:10 Creatinine 0.5 mg/dL (0.55-1.02) L 03/11/21 13:10 Estimated GFR/1.73 m2 >= 60.00 (mL/min/1.73m2) 03/11/21 13:10 Glucose 98 mg/dL (74-106) 03/11/21 13:10 Calcium 8.8 mg/dL (8.5-10.1) 03/11/21 13:10 Total Bilirubin 0.2 mg/dL (0.2-1.0) 03/11/21 13:10 Conjugated Bilirubin 0.1 mg/dL (0.0-0.2) 03/11/21 13:10 AST 14 U/L (15-37) L 03/11/21 13:10 ALT 11 U/L (14-59) L 03/11/21 13:10 Alkaline Phosphatase 115 U/L (46-116) 03/11/21 13:10 Total Protein 6.8 g/dL (6.4-8.2) 03/11/21 13:10 Albumin 2.3 g/dL (3.4-5.0) L 03/11/21 13:10 TSH 1.33 uIU/mL (0.36-3.74) 03/11/21 13:10 CSF Toxo. gondii Source Cancelled 03/11/21 Unknown COVID-19 Source Nasal/Nares 03/11/21 12:40 SARS-CoV-2 (PCR) Negative (Negative) 03/11/21 12:40 HIV 1&2 Antibody Rapid Cancelled 03/11/21 11:17 T. gondii DNA PCR Cancelled 03/11/21 Unknown Patient ABO/Rh O Positive 03/11/21 13:10 Antibody Screen NEGATIVE 03/11/21 13:10 Subjective Interval history since last seen: patient became more and more frustrated and was having a very difficult time maintaining her composure and requested epidural. Dr. Ruiz notified that there was no cervical change in approximately 4 hours despite adequate contractions and that marketing copywriter would like to get epidural or intathecal for pain relief and reassess patient status. agrees to this plan and Anesthesia was called to attend and will attend. Results Hemoglobin/Hematocrit: Hgb 9.3 g/dL (11.2-15.7) L 03/11/21 11:12 Hct 28.5 % (36.0-46.0) L 03/11/21 11:12 Abnormal Lab Findings: Abnormal Labs 03/11/21 03/11/21 03/11/21 11:12 13:10 13:10 RBC 3.51 L Hgb 9.3 L Hct 28.5 L MCH 26.5 L MPV 11.3 H PT 8.9 L Chloride 108 H Carbon Dioxide 19.2 L BUN 6 L Creatinine 0.5 L AST 14 L ALT 11 L Albumin 2.3 L
--- NOTE | 2021-03-12 03:41 | OBVDS_ITS ---
Date of service: 03/12/21 Time of Service: 03:14 OB Labor/ Delivery Information Baby A Delivery Delivery Method: Spontaneaous Presentation: Cephalic Cephalic Position: Vertex Vertex Position: Left Occipital Anterior Cord Description-Baby A: 3 Vessels Amniotic Fluid: Clear Delivery Outcome: Stillborn Note: Stilborn Baby Girl Tanvi Dao shown to Mother and then per her request baby was removed from room. automotive service writer reviewed with Josephine that there was a tight nuchal cord and no other obvious abnormalities. Patient is greiving and very tired. She is aware that she can have the baby return to the room with her if she desires. [facility] [employer] [facility] was called by RN to notify of delivery of stillborn. [facility] Labor/Delivery Information Number of Babies in Womb: 1 Steroids Given: None Reason Steroids Not Administered: N/A and Other (IUFD) Group Beta Strep: Positive (no antibiotic required due to IUFD) Antibiotics Administered: No Rubella Status: Nonimmune Blood Type: O+ Varicella Immunity: Nonimmune Born En Route: No Maternal Complications: None Shoulder Dystocia: No Stages of Labor ROM Baby A: 03/11/21 ROM Baby A: 20:58 Infant Delivery Date-Baby A: 03/12/21 Delivery Time-Baby A: 03:14 Baby A Infant Gender: Female Gestational Status: Early Term (37-38.6 wks) Gestational Age in Weeks/Days: 37 Weeks and 1 Days Note: Stillborn female delivers HUGH after short second stage of labor. Nuchal cord tight times 1 is noted prior to delivery of shoulders. Baby is shown to mother per her request and briefly held baby and then due to skin tears she requested baby be transferred to nursery. Placenta delivers via covington mechanism, intact at 03 . Fundus firms to U-1 with massage and 10 units Pitocin IM. Iv became dislodged during delivery. No further medications required as of 349. EBL only as delivery happened quickly after pateint had sat at bedside to receive an intrathecal and there was not enough time to place under buttocks drape. EBL 300cc. Perineum and vagina inspected and noted to be intact. Instrument and sponge count are correct. Mother requests pain medication immediately, Stadol 2 mg IM given. Will encourage rest and allow for time to grieve. Care Management team is aware of patient situation and will further work with patient in morning to help secure services for counseling and burial arrangements. Patient is in stable condition with appropriate grief response. Procedure Procedures: Other (placenta to pathology. Patient declines autopsy, considering placental cyto-genetics.)
[2021-03-12] MEDS: Ibuprofen 600 MG TAB PO ×2 (06:13→13:36)
[2021-03-12] MEDS: Acetaminophen 325 MG TAB 650 MG PO ×2 (06:13→13:35)
[2021-03-12 09:01] LABS: HBs Antibody, Quant 12.8 mIU/mL (See Note); Hepatitis B Surface Ab Positive (See Note)
[2021-03-12 09:54] LABS: HIV-1/2 Ag & Ab Screen Negative (Negative)
[2021-03-12 10:43] LABS: Varicella IgG Antibody Negative (See Note)
[2021-03-12 11:33] LABS: Rubella IgG Ab (UVM) Equivocal (See Note)
--- NOTE | 2021-03-12 11:58 | CHAPLAIN ---
I visited with Josephine this morning. She was eating breakfast, Rubin was sleeping. Josephine said she delivered Tanvi Back at 3:30 a.m. and a cord was wrapped around her neck and that was why no heartbeat had been detected recently. Josephine said she will be talking with Care Managers about arranging for cremation. She was a little tearful in talking holding the baby briefly after she was born, and then asking the nursing staff to take the baby out of the room. She said she just couldn't deal with it (holding the baby), but was told she could ask to have the baby brought back in the room at any time. I offered to speak with Josephine any time in the coming weeks. She is looking forward to resting in her own bed, she said. Nursing staff is preparing a memory box for Josephine.
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
[2021-03-12 16:56] LABS: HBc IgM Ab, S Negative (Negative)
[2021-03-13 00:02] LABS: Dilute Russell Viper Venom 34.3 secs (31.9-47.0); LA Cascade Summary (See Note); Silica Clotting Time 35.4 secs (30.2-48.4)
[2021-03-13 10:07] LABS: Syphilis Total Ab w/Reflex Nonreactive (Nonreactive)
[2021-03-13 10:29] LABS: Toxoplasma Ab, IgG Negative (Negative); Toxoplasma Ab, IgM Negative (Negative); Toxoplasma IgG Value <3 IU/mL
[2021-03-13 10:32] LABS: Antithrombin Activity, Plasma 96 % (80 - 130)
[2021-03-13 10:33] LABS: CMV Ab, IgM Negative (Negative)
[2021-03-13 11:13] LABS: CMV IgG Antibody Positive (See Note)
[2021-03-13 12:43] LABS: HSV Type 1 Ab, IgG Negative (Negative); HSV Type 2 Ab, IgG Positive (Negative)
[2021-03-13 19:38] LABS: Chlamydia Result Negative (Negative); GC Result Negative (Negative)
[2021-03-18 11:33] LABS: Drug Detection Panel, Umb Cord SEE COMMENTS
[2021-03-18 11:47] LABS: Factor V Leiden(R506Q) Mut Negative (Negative)
== END 2021-03-12 13:45 | disposition home or self-care (01) | DRG 806 ==
PROVIDERS: Admitting Provider Advanced Practice Midwife; Visit Provider Advanced Practice Midwife
DX: O36.4XX0 Maternal care for intrauterine death, not applicable or unspecified (principal); O98.42 Viral hepatitis complicating childbirth; Z37.1 Single stillbirth; O99.324 Drug use complicating childbirth; O98.32 Other infections with a predominantly sexual mode of transmission complicating childbirth; O99.824 Streptococcus B carrier state complicating childbirth; O99.334 Smoking (tobacco) complicating childbirth; F17.210 Nicotine dependence, cigarettes, uncomplicated; B19.20 Unspecified viral hepatitis C without hepatic coma; F12.980 Cannabis use, unspecified with anxiety disorder; Z3A.36 36 weeks gestation of pregnancy; O99.344 Other mental disorders complicating childbirth; F32.9 Major depressive disorder, single episode, unspecified; A60.00 Herpesviral infection of urogenital system, unspecified; O69.1XX0 Labor and delivery complicated by cord around neck, with compression, not applicable or unspecified
CPT/HCPCS: 80053; 80076; 80307; 81241; 85027; 85300; 86706; 86787; 86850; 86900; 86901; 87116; 87389; 87491; 87591; 87635; 84443; 85610; 85730; 86644; 86645; 86695; 86696; 86705; 86762; 86777; 86778; 86780; 87798; 88233; 88262; 88307; J0595; J2405; J3490